=== PATIENT | female | born 1950 | race Caucasian/White ===

== ENCOUNTER → 2020-04-30 09:00 | Outpatient (BNVA) | payer MEDICARE, SELFPAY | PROVIDERS: PCP Internal Medicine; Visit Provider Surgery | DX: Z48.3 Aftercare following surgery for neoplasm (principal); C50.911 Malignant neoplasm of unspecified site of right female breast | CPT/HCPCS: 99212 ==

== ENCOUNTER 2020-05-11 10:16 | Outpatient (REF) | payer MEDICARE, SELFPAY | END 2020-05-11 10:17 | disposition home or self-care (01) | LOC: HO.LAB 10:16 | PROVIDERS: PCP Internal Medicine; Visit Provider Internal Medicine | DX: Z20.828 Contact with and (suspected) exposure to other viral communicable diseases (principal) | CPT/HCPCS: 87635 ==

== ENCOUNTER 2020-05-18 14:52 | Outpatient (REF) | payer MEDICARE, SELFPAY ==
--- NOTE | 2020-05-18 14:57 | MM_ITS ---
EXAMINATION: BONE DENSITOMETRY CLINICAL INDICATION: Osteoporosis. COMPARISON: Previous BD dated 10/19/2015 and baseline BD dated 05/16/2007. TECHNIQUE: Using a [employer] DXA System (software version: 13.1) manufactured by [employer], dual-energy x-ray absorptiometry was performed of the lumbar spine and left hip. The images are of good technical quality. Summary results are attached. FINDINGS: AP SPINE L1-L4: Current: BMD 1.068 g/cm2, Z-score 0.6, T-score -0.9, normal, 5.5% decrease from previous, 5.0% decrease from baseline (<5% change is not significant). Prior: BMD 1.130 g/cm2. Baseline: BMD 1.124 g/cm2. LEFT FEMUR, NECK: Current: BMD 0.708 g/cm2, Z-score -0.7, T-score -2.4, osteopenia. Prior: BMD 0.759 g/cm2. Baseline: BMD 0.884 g/cm2. LEFT FEMUR, TOTAL: Current: BMD 0.783 g/cm2, Z-score -0.4, T-score -1.8, osteopenia, 9.5% decrease from previous, 20.0% decrease from baseline (<5% change is not significant). Prior: BMD 0.865 g/cm2. Baseline: BMD 0.979 g/cm2. IDENTIFIED RISK FACTORS: Height loss, low calcium intake, menopause. HISTORY OF FRACTURE: None listed. MEDICATIONS: None listed. MM/XR DEXA axial skeleton IMPRESSION: 1. DIAGNOSIS: Osteopenia based on the lowest T-score value of -2.4 in the femoral neck applying World Health Organization criteria. 2. 10-YEAR FRACTURE RISK PREDICTION, FRAX: Major osteoporotic fracture (clinical spine, forearm, hip or shoulder) 14.2%. Hip fracture 3.4%. 3. Treatment Recommendations: NOF guidelines recommend consideration for treatment in postmenopausal women and men age 50 and older presenting with the following: -A hip or vertebral (clinical or morphometric) fracture. -T-score less than or equal to -2.5 at the femoral neck or spine after appropriate evaluation to exclude secondary causes. -Low bone mass at the hip or spine and a 10-year fracture probability by FRAX of greater than or equal to 3% for hip fracture or greater than or equal to 20% for major osteoporotic fracture based on the [place] adapted WHO algorithm. 4. Other Recommendations: All treatment decisions require clinical judgment and consideration of individual patient factors, including patient preferences, comorbidities, previous drug use, risk factors not captured in the FRAX model (e.g. frailty, falls, vitamin D deficiency, increased bone turnover, interval significant decline in bone density) and possible under or overestimation of fracture risk by FRAX. Additional medical evaluation for secondary cause of low bone mineral density may be appropriate. FUTURE SCAN RECOMMENDATION: People with diagnosed cases of osteoporosis or at high risk for fracture should have regular bone mineral density tests. For patients eligible for Medicare, routine testing is allowed once every 2 years. The testing frequency can be increased to one year for patients who have rapidly progressing disease, those who are receiving or discontinuing medical therapy to restore bone mass, or have additional risk factors.
== END 2020-05-18 14:53 | disposition home or self-care (01) ==
LOC: HO.MAMMO 14:52
PROVIDERS: PCP Internal Medicine; Visit Provider Internal Medicine
DX: M81.0 Age-related osteoporosis without current pathological fracture (principal)
CPT/HCPCS: 77080

== ENCOUNTER 2020-08-05 07:19 | Outpatient (REF) | payer MEDICARE, SELFPAY ==
[2020-08-05 09:06] LABS: Alanine Aminotransferase 12 U/L (0-31); Albumin Level 4.4 g/dL (3.5-5.0); Alkaline Phosphatase 59 U/L (39-117); Anion Gap 14 (12-20); Aspartate Amino Transferase 11 U/L (5-31); Bilirubin Total 0.6 mg/dL (0.0-1.0); Blood Urea Nitrogen 21 mg/dL (9-16); Calcium 9.4 mg/dL (8.4-10.2); Carbon Dioxide 29 mmol/L (22-29); Chloride 102 mmol/L (96-108); Cholesterol 227 mg/dL; Estimated Glomerular Filt Rate > 60; Glucose Random 92 mg/dL (60-115); HDL Cholesterol 69 mg/dL; LDL Cholesterol Calculated 138 mg/dl; Potassium 4.3 mmol/l (3.3-5.1); Sodium 141 mmol/L (135-145); Total Protein 7.6 g/dL (6.5-8.0); Triglycerides 103 mg/dL
== END 2020-08-05 07:20 | disposition home or self-care (01) ==
LOC: HO.LAB 07:19
PROVIDERS: Visit Provider Internal Medicine
DX: E78.2 Mixed hyperlipidemia (principal); I10 Essential (primary) hypertension; M54.5 Low back pain; N30.00 Acute cystitis without hematuria
CPT/HCPCS: 36415; 80053; 80061

== ENCOUNTER 2020-08-09 14:51 | Outpatient (REF) | payer MEDICARE, SELFPAY | END 2020-08-09 14:52 | disposition home or self-care (01) | LOC: HO.LNP 14:51 | PROVIDERS: Visit Provider Otolaryngology | DX: B37.0 Candidal stomatitis (principal) | CPT/HCPCS: 87102; 87106 ==

== ENCOUNTER → 2020-08-24 10:13 | Outpatient (BNVA) | payer MEDICARE, SELFPAY | PROVIDERS: PCP Internal Medicine; Visit Provider Surgery | DX: C50.911 Malignant neoplasm of unspecified site of right female breast (principal) | CPT/HCPCS: 99212 ==

== ENCOUNTER 2020-09-24 15:00 | Outpatient (REF) | payer MEDICARE, SELFPAY ==
--- NOTE | ~2020-09-24 | MM_ITS ---
EXAMINATION: MM DIAGNOSTIC DIGITAL BREAST TOMOSYNTHESIS, RIGHT CLINICAL INFORMATION: Status post right lumpectomy. New Baseline. COMPARISON: Mammography: 03/25/2020 and studies dating back to 08/28/2011. TECHNIQUE: Digital breast tomosynthesis is performed in both the craniocaudal and mediolateral oblique views along with computer-aided detection (CAD). Synthesized 2D images are generated from the tomosynthesis. Spot magnification views of the right breast in craniocaudal and 90 degree mediolateral views performed. FINDINGS: There are scattered areas of fibroglandular density (ACR BI-RADS breast composition Category b). Postsurgical change is seen within the upper outer quadrants deep right breast. No new abnormal dominant mass or suspicious grouping of microcalcifications identified. Six-month bilateral mammography suggested. Results are provided to the patient at time of visit by the technologist. MM/MM tomosynthesis diagnostic RT IMPRESSION: Postsurgical change of the right breast with no new specific mammographic evidence to suggest malignancy. ASSESSMENT: BI-RADS 2: Benign. RECOMMENDATION: Diagnostic mammography in 6 months. This patient's information was entered into a reminder system with a target due date for their next mammogram.
== END 2020-09-24 15:01 | disposition home or self-care (01) ==
LOC: HO.MAMMO 15:00
PROVIDERS: Visit Provider Surgery
DX: Z85.3 Personal history of malignant neoplasm of breast (principal); Z92.3 Personal history of irradiation; Z98.890 Other specified postprocedural states
CPT/HCPCS: 77061; 77065

== ENCOUNTER 2020-10-11 14:29 | Outpatient (REF) | payer MEDICARE, SELFPAY ==
[2020-10-11 16:27] LABS: Blood Urea Nitrogen 15 mg/dL (9-16); Estimated Glomerular Filt Rate > 60
== END 2020-10-11 14:30 | disposition home or self-care (01) ==
LOC: HO.LAB 14:29
PROVIDERS: PCP Internal Medicine; Visit Provider Otolaryngology
DX: J38.3 Other diseases of vocal cords (principal)
CPT/HCPCS: 36415; 82565; 84520

== ENCOUNTER 2020-10-19 13:37 | Outpatient (REF) | payer MEDICARE, SELFPAY ==
[2020-10-19 15:19] LABS: Erythrocyte Sedimentation Rate 10 MM/HR (0-20)
[2020-10-20 12:37] LABS: Lyme Abs Screen <0.90 index
[2020-10-21 11:26] LABS: IgA 251 mg/dL (70-320); IgG 1247 mg/dL (600-1540); IgM 80 mg/dL (50-300)
[2020-10-22 01:52] LABS: Copper, serum 119 mcg/dL (70-175)
[2020-10-26 14:21] LABS: Mercury, serum/plasma None Detected mcg/L
== END 2020-10-19 13:38 | disposition home or self-care (01) ==
LOC: HO.LAB 13:37
PROVIDERS: PCP Internal Medicine; Visit Provider Psychiatry & Neurology Neurology
DX: G12.20 Motor neuron disease, unspecified (principal)
CPT/HCPCS: 36415; 82525; 82550; 82784; 83825; 85652; 86334; 86617; 86618

== ENCOUNTER 2020-10-20 13:09 | Outpatient (REF) | payer MEDICARE, SELFPAY ==
--- NOTE | ~2020-10-20 | MR_ITS ---
EXAMINATION: BRAIN MRI WITHOUT CONTRAST CLINICAL INFORMATION: Weekend voice/slurring. Difficulty swallowing. History of breast carcinoma. COMPARISON: No relevant prior imaging. TECHNIQUE: Multiplanar MR imaging of the brain was performed without contrast. FINDINGS: Dedicated high-resolution imaging through the posterior fossa reveals no cerebellopontine angle cistern mass. There is no intracranial mass effect or midline shift. No abnormal extra-axial collection. Lateral and third ventricles are normal. No hydrocephalus. Midline structures including the cervicomedullary junction are normal. No acute bone marrow signal changes. There is no acute territorial infarct. No pathological magnetic susceptibility artifact. Intracranial vascular flow voids are maintained. There is no mastoid or middle ear effusion. No active paranasal sinus disease. MR/MR head/brain wo con IMPRESSION: Normal brain MRI.
== END 2020-10-20 13:10 | disposition home or self-care (01) ==
LOC: HO.MRI 13:09
PROVIDERS: Visit Provider Psychiatry & Neurology Neurology
DX: G12.20 Motor neuron disease, unspecified (principal)
CPT/HCPCS: 70551

== ENCOUNTER → 2020-11-23 09:41 | Outpatient (BNVA) | payer MEDICARE, SELFPAY | PROVIDERS: PCP Internal Medicine; Visit Provider Surgery | DX: C50.911 Malignant neoplasm of unspecified site of right female breast (principal) | CPT/HCPCS: 99212 ==

== ENCOUNTER 2020-12-06 14:40 | Outpatient (REF) | payer MEDICARE, SELFPAY ==
--- NOTE | ~2020-12-06 | FL_ITS ---
EXAMINATION: XR BARIUM SWALLOW CLINICAL INFORMATION: Mild lumbar paralysis. Dysarthria and dysphagia. COMPARISON: None TECHNIQUE: Routine modified barium swallow was performed on the lateral fluoroscopy in presence of speech therapist a different consistencies of simple liquid, semisolid and solid food.. FINDINGS: On oral administration of thin barium and nectar consistency barium patient had laryngeal penetration but no aspiration was seen. No retention seen in the valleculae or piriform sinuses. On oral administration of honey, puree, thick and cookie coated with barium there is normal oral mastication with slight premature spillage but with normal propagation bolus from the oral cavity into the esophagus without laryngeal penetration or aspiration. There was some retention of solid food food in the valleculae cleared with thin barium. On oral administration of barium tablet there is spontaneous passes through the oral cavity and pharynx into the upper esophagus. There was transitional hold up of barium in the upper thoracic esophagus. FLUOROSCOPY TIME: 3.7 minutes DOSE AREA PRODUCT: 2.935 uGy-m2 (microgray-meter squared) FL/FL barium swallow modified IMPRESSION: Laryngeal penetration with thin barium and nectar consistency barium. This was not seen with semisolid and solid food. There is mild retention of solid food in the valleculae which cleared with oral administration of thin barium. Transition holdup of barium tablet in the upper thoracic esophagus.
--- NOTE | 2020-12-08 15:40 | MHC.SL.IMP ---
Date of Plan of Treatment: 12/06/20 Onset of Symptoms/Illness: 06/08/20 Date Treatment Started: 12/06/20 Admitting Diagnosis: Primary (admitting) Diagnosis: Breast cancer Rebecca Gehrigs disease Bulbar palsy Year of Onset or Diagnosis: 2020 Comorbidities: Hypertension Past Medical History: Breast biopsy Lumpectomy right breast Laparoscopic cholecystectomy Tonsillectomy Primary Speech & Language Diagnosis: R13.12 Oropharyngeal Phase Dysphagia Secondary Speech & Language Diagnosis: R47.1 Dysarthria Reason for Today's Visit: 46522 Modified Barium Swallow Study Pre-evaluation Dietary Consistencies: Regular Pre-evaluation Liquid Consistency: Thin Pre-evaluation Medication Administration: Whole with Liquid Medical History: Comments: Modified Barium Swallow Study Fluoroscopic Evaluation of Swallowing Function CPT Code 84846 Evaluation Year: 2020 Reason for Study: Patient reports globus sensation and coughing when eating. Referring Physician: Jeovanny Carbone M.D. Evaluating Clinician: Marifer Martinez M.A. [facility] OVEN OPERATOR Study Number: 1 Patient Name: Pennie Lala Status: Outpatient Age: 70 Gender: Female MEDICAL HISTORY: Primary (admitting) Diagnosis: Breast cancer Rebecca Gehrigs disease Bulbar palsy Year of Onset or Diagnosis: 2020 Comorbidities: Hypertension Past Medical History: Breast biopsy Lumpectomy right breast Laparoscopic cholecystectomy Tonsillectomy Current (pre-evaluation) Intake/Diet: Route: PO Diet Grade: Regular Liquid Consistencies: Thin Pre-Study Functional Oral Intake Scale (FOIS): 7- Total oral intake with no restrictions Pain: None reported at time of study Oral Motor Exam Facial Symmetry: Symmetrical Mouth Occlusion: Normal Oral-Facial Teeth Characteristics: Intact/Normal Oral-Facial Teeth Miscellaneous Observation: Oral-Facial Lip Pucker Description: Weak Oral-Facial Smile (Lips) Description: Reduced ROM Oral-Facial Puff Cheeks Description: Normal Tongue Size: Normal Tongue Excursion Description: Incomplete Tongue Range of Movement Description: Reduced Tongue Speed of Movement Description: Reduced Tongue Strength of Movement (against opposing pressure): Reduced Tongue Movement Characteristics: Fasciculations Tongue Movement Miscellaneous Observation: Noted lingual fasciculations. Oral Expression Ability: Severe Impairment Is patient able to manage secretions?: Yes Is patient able to produce volitional cough?: Yes Food and Liquid Trials: Oral Impairment: Lip Closure: Did not test Oral Impairment: Tongue Control During Bolus Hold: 0=Cohesive bolus between tongue to palatal seal Oral Impairment: Bolus Preparation/Mastication: 1=Slow prolonged chewing/mashing with complete re-collection Oral Impairment: Bolus Transport/Lingual Motion: 3=Repetitive/disorganized tongue motion Oral Impairment: Oral Residue: 2=Residue collection on oral structures Oral Impairment:Initiation of Pharyngeal Swallow: 3=Bolus head in pyriforms Pharyngeal Impairment: Soft Palate Elevation: 1=Trace column of contrast or air between SP and PW Pharyngeal Impairment: Laryngeal Elevation: 1=Partial thyroid cartilage/arytenoids to epiglottic petiole movement Pharyngeal Impairment: Anterior Hyoid Excursion: 1=Partial anterior movement Pharyngeal Impairment: Epiglottic Movement: 1=Partial inversion Pharyngeal Impairment: Laryngeal Vestibular Closure:: 1=Incomplete: narrow column air/contrast in laryngeal vestibule Pharyngeal Impairment: Pharyngeal Stripping Wave: 1=Present: diminished Pharyngeal Impairment: Pharyngeal Contraction: Did not test Pharyngeal Impairment: Pharyngoesophageal Segment Openin=Partial distention/partial duration: partial obstruction of flow Pharyngeal Impairment: Tongue Base (TB) Retraction: 2=Narrow column of contrast/air between TB and posterior PW Pharyngeal Impairment: Pharyngeal Residue: 2=Collection of residue within or on pharyngeal structures Pharyngeal Impairment: Esophageal Clearance Upright Position: 1=Esophageal retention Impressions and Recommendations Clinical Observations: OBJECTIVE: Time-out: performed at 02:45 Evaluation Start: 02:30; Stop: 02:40 Patient Positioning: Seated 70-90 degrees Viewing Planes: LATERAL ONLY Contrast: MBSImP? Standardized Protocol using commercially prepared, standardized Barium viscosities, including: Varibar? THIN LIQUID (40% w/v, <15 cps) , Varibar? NECTAR (40% w/v, <150-450 cps) , Varibar? THIN HONEY (40% w/v, <800-1800 cps) , 1/2 Shortbread Cookie (1 x1 x.25 ) MBSImP ID: [id number] MBSImP Results: Lip closure for intraoral bolus containment could not be assessed due to logistical reasons not related to physiologic impairment. Tongue control during bolus hold maintained a cohesive bolus held between tongue to palate seal. Bolus preparation and mastication resulted in slow, prolonged chewing/mashing but with complete re-collection. Bolus transport/lingual motion was with repetitive/disorganized motion of the tongue. Oral residue was a collection on oral structures. Initiation of the pharyngeal swallow occurred when the bolus head was in the pyriform sinuses. Soft palate elevation allowed a trace column of contrast or air between the soft palate and the pharyngeal wall. Laryngeal elevation was decreased, with partial superior movement of the thyroid cartilage/partial approximation of the arytenoids to the epiglottic petiole. Anterior hyoid excursion demonstrated partial anterior movement. Epiglottic movement resulted in partial inversion. Laryngeal vestibular closure was incomplete, with a narrow column of air/contrast noted within the laryngeal vestibule at the height of the swallow. Pharyngeal stripping wave was present, but diminished. Pharyngeal contraction could not be determined due to logistical reasons not related to physiologic impairment. Pharyngoesophageal segment opening demonstrated partial distension/partial duration, with partial obstruction of bolus flow. Tongue base retraction allowed a narrow column of contrast or air between the retracted tongue base and the posterior pharyngeal wall. Pharyngeal residue was a collection of residue within or on pharyngeal structures. Esophageal clearance in the upright position resulted in esophageal retention. Oral Impairment Score: 9 (absence of score, component 1) Pharyngeal Impairment Score: 11 (absence of score, component 13) Esophageal Impairment Score: 1 Laryngeal Penetration and Aspiration: Penetration was observed in today's study. Thin Contrast entered the airway, remained above the vocal folds, and was ejected from the airway. Thin Contrast entered the airway, contacted the vocal folds and was not ejected from the airway. ASSESSMENT: This exam was conducted by radiologist and speech-language pathologist with patient seated at optimal 90 degree position for lateral view only. Patient was able to feed herself when handed food items. Patient trialed the following liquid and solid consistencies: -5 mL thin liquid barium -cup sip thin liquid barium -teaspoon sip honey thick liquid barium -cup sip nectar thick liquid barium -pureed solid (applesauce mixed with barium paste) -ground solid (chicken salad mixed with barium paste) -hard regular solid (Aaliyah Doone cookie coated in barium paste) -barium tablet administered with nectar thick liquid Patient presents with moderate to severe oropharyngeal dysphagia. The patient's performance in today's study indicated impairment in the following components of swallow physiology: ORAL PHASE: -prolonged mastication -repetitive and disorganized posterior lingual transport -mild oral residue -delayed pharyngeal swallow trigger PHARYNGEAL PHASE: -trace column of contrast between soft palate and pharyngeal wall -partial superior movement of thyroid cartilage with partial epiglottic inversion and partial anterior hyoid movement -incomplete laryngeal vestibular closure -diminished pharyngeal stripping wave -partial distention/ partial obstruction of flow through PES -reduced tongue base retraction -mild to moderate pharyngeal residue diffusely on tongue base, in valleculae, on posterior pharyngeal wall and in pyriforms -esophageal retention Evidence of penetration when drinking thin liquid. With smaller amounts, consistent flash penetration which subsequently ejected out of trachea. With larger amount, deep penetration into trachea, resulting in coughing and which was not ejected despite effort. Patient was instructed to clear her throat and to cough multiple times, but this was ineffective. No evidence of aspiration or penetration with thickened liquids nectar thick and honey thick. Reduced pharyngeal residue with sip of nectar thick liquid. Multiple swallow strategy was also effective in reducing residue. Patient swallowed barium pill tablet with sips of nectar thick liquid. Tablet passed through PES. Noted esophageal retention. It is important to note when drinking water after the study had been discontinued (thin liquid), patient displayed overt s/s of aspiration, as she coughed and gasped, turning red in the face. Patient stated, ?That went down the wrong pipe.? The following compensatory strategies have not been used until today's study, but when employed, improved swallowing function: [place]-thick Liquid eliminated Penetration Honey-thick Liquid eliminated Penetration Bolus Volume Change decreased Pharyngeal Residue Rate of Ingestion Change decreased Pharyngeal Residue Liquid Wash decreased Oral Residue, Pharyngeal Residue Additional Swallow(s) per Bolus decreased Oral Residue, Pharyngeal Residue Liquid Intake Recommendation: [place] Thick Liquid Intake Strategies: Small Sips No Straws Double Swallow Dietary Recommendations: Chopped/Advanced (NDD3) Medication Administration: Whole with Puree Compensatory Strategies Recommended: Sitting Upright (90 deg) Double Swallow No Straw Liquids from Cup Liquids from Spoon Small Bites and Sips Alternate Liquids/Solids Rate of Ingestion Change Avoid Specific Foods Supervision during eating and or drinking: Intermittent Supervision Recommended Treatments: Compens. Strategy Educat. Recommendation for Speech Therapy: Outpatient Speech Therapy Speech Therapy through [facility] Intake Recommendations: Route: PO Diet Grade: Chopped/ Advanced ? National Dysphagia Level 3 (NDD3) Liquid Consistencies: [place] Post-Study Functional Oral Intake Scale (FOIS): 5- Total oral intake of multiple consistencies requiring special preparation Evidence of deep penetration during exam. Patient coughed after exam when drinking water. Patient is at risk for aspiration. Recommend CHOPPED/ ADVANCED (NDD3) solids to ease mastication and reduce pharyngeal residue. Recommend food to be cut into small bite size pieces and moistened/softened with sauce/gravy. Please refer to recommendations per National Dysphagia Diet Level 3 (NDD3). Recommend avoid foods which are tough/dry and/or sticky. Recommend avoid mixed consistencies, such as cereal with milk or soups with thin broth (considered a thin liquid). If patient has difficulty swallowing pills, recommend pills whole or crushed (if cleared by MD/pharmacy) in pureed consistency (applesauce, yogurt, pudding, etc). Recommend thickened liquid, strict aspiration precautions, and close monitoring for any overt s/s of aspiration: -small bites of food, moistened with sauce/gravy -chew food well -alternate bite of food with sip of liquid -multiple swallow (swallow twice with each bite and each sip) -liquids by teaspoon or cup sip -avoid use of straws -small individual cup sip ? NO chugging or consecutive sips -upright 90 degree position during meals and for at least 30-60 minutes after meals -oral care routine at least 4 times daily Recommend 3 visits for dysphagia treatment outpatient or through [facility]. Frequency/Duration: 1x weekly x 3 weeks Date Range for Service Requested: Timeline to reassess: 3 months Home Health Rn Clinician/Clinical Fellow: No Supervisory Statement: N/A Speech Language Pathologist: Marifer Martinez M.A., CCC-ANNEALING OVEN OPERATOR
== END 2020-12-06 14:41 | disposition home or self-care (01) ==
LOC: HO.XRAY 14:40
PROVIDERS: Visit Provider Psychiatry & Neurology Neurology
DX: G35 Multiple sclerosis (principal); G51.0 Bell's palsy; R13.10 Dysphagia, unspecified; R47.1 Dysarthria and anarthria
CPT/HCPCS: 74230; 92611

== ENCOUNTER 2020-12-20 07:51 | Outpatient (REF) | payer MEDICARE, SELFPAY ==
--- NOTE | ~2020-12-20 | XR_ITS ---
EXAMINATION: KNEE X-RAY CLINICAL INFORMATION: Pain COMPARISON: Previous x-ray June 2018 TECHNIQUE: Standing AP view of both knees and lateral and sunrise view of the left kidney FINDINGS: Left knee: Bone alignment is normal. No fracture or dislocation seen. There is arthritis at the medial femoral tibial and patellofemoral joint with joint space narrowing and osteophyte formation. There is no significant joint effusion. Standing AP view of the right knee demonstrates medial femoral tibial joint space narrowing and osteophyte formation. XR/XR knee LT 3V IMPRESSION: Bilateral arthritis.
--- NOTE | ~2020-12-20 | XR_ITS ---
EXAMINATION: KNEE X-RAY CLINICAL INFORMATION: Pain COMPARISON: Previous x-ray June 2018 TECHNIQUE: Standing AP view of both knees and lateral and sunrise view of the left kidney FINDINGS: Left knee: Bone alignment is normal. No fracture or dislocation seen. There is arthritis at the medial femoral tibial and patellofemoral joint with joint space narrowing and osteophyte formation. There is no significant joint effusion. Standing AP view of the right knee demonstrates medial femoral tibial joint space narrowing and osteophyte formation. XR/XR knee standing BI IMPRESSION: Bilateral arthritis.
== END 2020-12-20 07:52 | disposition home or self-care (01) ==
LOC: HO.HOSX 07:51
PROVIDERS: Visit Provider Physician Assistant
DX: M17.12 Unilateral primary osteoarthritis, left knee (principal)
CPT/HCPCS: 20610; 73562; 73564; 73565; 99202; J1100

== ENCOUNTER 2020-12-23 14:23 | Outpatient (RCR) | payer MEDICARE, SELFPAY ==
--- NOTE | 2020-12-06 16:49 | MHC.SLORD ---
Speech Language Pathology Order Status: MBSS completed. Evidence of deep penetration trace amount when drinking thin liquid. Patient did not clear from airway with volitional cough. No aspiration or penetration with nectar thick and honey thick liquids. No aspiration or penetration with solids. Pharyngeal retention on tongue base, pharyngeal wall, vallecular space, and pyriforms. ? of aspiration event when patient was drinking (thin) water after exam. Patient took small sip and began coughing, turning red in the face, and stating It went down the wrong pipe. Recommend CHOPPED/ADVANCED solids (NDD3) and NECTAR THICK liquid. Recommend 1-2 follow up visits with [employer] for dysphagia.
--- NOTE | 2020-12-06 16:57 | MHC.SLORD ---
Speech Language Pathology Order Status: [employer] called and spoke with patient. Discussed MBSS results and recommendations/instructions for thickener.
--- NOTE | 2020-12-28 15:10 | MHC.SP.ADU ---
Referring provider: Dr. Carbone Reason for Referral: Assess speech and swallow functions as Pennie was recently diagnosed with ALS Type of Treatment: 59075 Evaluation of Speech Sound Production Date of Plan of Treatment: 12/23/20 Onset of Symptoms/Illness: 05/16/20 Date Treatment Started: 12/06/20 Medical Diagnosis: Hypertension, osteoarthritis left knee, breast cancer diagnosed February 2020 s/p lumpectomy and radiation. 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 Jeovanny Carbone. Per Dr. Carbone?s provided notes from her office visit on 11/29/20, Pennie initially noted changes with her speech and vocal quality in May 2020. Pennie reported that in May, her voice was just hoarse. Around the same time, she also developed difficulty with swallowing pills. Her PCP, Dr. Short, referred her to an ENT, at which time she was diagnosed with thrush. Pennie was treated for thrush, though her vocal quality did not improve. She was then referred to a neurologist. She had an EMG/NCV on 11/03/20 which revealed normal motor and sensory nerve conduction in upper and lower extremities. 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 Dr. Carbone recommended a second opinion; Pennie has an appointment with Dr. Waldrop on January 11, 2021. Per Dr. Carbone's provided notes from Pennie's recent office visit on 11/29/20 reported that atrophy and fasiculations were noted on Pennie?s tongue, along with spasticity. Significant dysarthria was also noted. Pennie participated in a Modified Barium Swallow Study (MBSS) that was performed at [facility] on 12/06/20 at which time an NDD3 (chopped) diet with nectar thick liquids was recommended. Medical History: Cancer: other High Blood Pressure Neurological Conditions e.g.: Diana's, Parkinson's Voice Changes Medication List: Amlodipine, Olmesartan, Fluconazole, Riluzole Recent Hospitalizations: No Respiratory Needs: Room Air Patient Orientation: Alert & Oriented x 4 Social History: Employment Status: Retired Highest level of education obtained: Completed Bachelor's Current Living Situation: Pennie resides alone in a home in [place], [place]. She is currently retired and previously worked as a computer engineering technologist. Assistive Devices in use: Comment: Pennie wears glasses when reading. She ambulated without any assistive devices. Past Speech Language Therapy: None Other Therapies Seen in Current Calendar Year: None Swallowing History: Dysphagia Specific: Risk of Aspiration Oral Phase Dysphagia Pharyngeal Dysphagia Comments: Pennie participated in a Modified Barium Swallow Study (MBSS) that was performed at [facility] on 12/06/20. Findings revealed the following: slow, prolonged mastication with solids, repetitive/disorganized lingual movements during bolus transport, oral residuals, decreased laryngeal elevation, partial epiglottic inversion, flash penetration with small quantities of thin liquids and deep laryngeal penetration with larger quantities of thin liquids. Pennie was not successful in ejecting the penetrated liquid with the use of a cough or throat clear. No tracheal aspiration or laryngeal penetration was visualized with thickened liquids. An NDD3 (National Dysphagia Diet level 3) diet (chopped/advanced solids), nectar thick liquids, and medications crushed in puree were recommended. Pennie reported no further overt signs or symptoms of aspiration since she began the implementation of these recommendations at home. Pre-eval Risk for Aspiration: Neurological Condition Weak Cough Weak Voice Pre-evaluation Dietary Consistencies: Chopped/Advanced (NDD3) Pre-eval Liquid Intake: [place] Thick Pre-eval Medication Intake: Crushed with Puree Reported Speech, Language, Cognition difficulties: Speaking Voice Swallowing Comments: Pennie reported that an VOCATIONAL AIDE, Shazia Thomas M.S. [facility]-VOCATIONAL AIDE, from the [place] chapter of the ALS association visited her home on 12/22/20. Pennie provided this clinician with Shazia's contact information in order to collaborate in Pennie's care. Quality of Life: Pennie reported that she frequently has difficulty being understood by others. She now requires other people to make phone calls for her, as individuals on the telephone are unable to understand Pennie. She also reported that she participates in Zoom calls with her friends in the evening, though is unable to speak as they are unable to understand her. She instead types in order to communicate with them. Patient Stated Goal of Speech-Language Therapy: To be able to be understood by others, especially when making phone calls and ordering at the [facility]. Assessment Speech Production: Dysarthric Clinical Impression: Impaired Observations: Satinder's 50-word Intelligibility Test was administered. The purpose of this test is to classify the degree of dysarthria based on intelligibility (how well Damons speech can be understood by others). Pennie was provided with 50 index cards that each contained a single printed word. These cards were presented in random order. Pennie then read each word aloud and this clinician wrote down her responses. Based on this assessment, Pennie's speech intelligibility for single words was 62%; 31 out of the 50 words produced by Pennie were understood by this clinician. Pennie often produced the correct initial sounds of words, but substituted or omitted the final sounds of words. This pattern is suspected to be related to fatigue. Pennie expressed that she felt fatigued following the evaluation tasks. For instance, this clinician heard the word sleeves for sleeps , shove for shrug , and swep for swept . When provided with a short reading passage unfamiliar to this clinician, Pennie's speech was less than 10% intelligible. Informal Voice Assessment: Voice Loudness: Moderately Soft/Quiet Monoloudness Limited Variation Voice Nasal Resonance: Hypernasal Voice Oral Resonance: Chesty Voice Phonatory-based Quality: Breathy Hoarse Tremor Loss of Voice Voice Pitch: Limited Variation Pitch Breaks Voice Other Observations: Progressively Weak Voice Inadequate Breath Support Clinical Impression: Impaired Clinicial Observations: Pennie demonstrated monopitch and monoloudness during structured evaluation tasks as well as spontaneous connected speech. Her vocal quality was deemed by this grinder chipper to be very hoarse. Pennie demonstrated decreased breath support for speech, evidence by aphonia at times (loss of voice) as well as pitch breaks. Tests of Speech & Lang Adults: Clinical Impression: Did Not Test Observations: There was no indication for expressive/receptive language testing at the time of the evaluation. Pennie did not demonstrate any instances of word retrieval difficulty nor difficulties with comprehension throughout the assessment. Tests of Cognition: Clinical Impression: Did Not Test Observations: There was no indication for a cognitive assessment at the time of Pennie's evaluation. Augmentative and Alternative Communication: Observations: Discussed the recommendation for an AAC evaluation. Impressions and Recommendations Summary: Impact on Daily Function/Activity Limitations- Daily Activities: Severe Interpersonal Interactions: Severe Education: None Employment: None Community: Severe Prognosis for Improvement: Fair Comment: Pennie is highly motivated to improve her swallow and speech/voice functions, however, due to the progressive nature of ALS, her overall prognosis in the areas of speech, voice, and swallow function is fair-guarded. Recommendation for Speech Therapy: Further Testing Needed Outpatient Speech Therapy Frequency/Duration: 1x/week x 12weeks Time to Reassess: 3 months Asian Studies Professor Goals: Pennie was notified that the [facility] currently has a waitlist. However, this clinician will contact the VOCATIONAL AIDE from the [place] chapter of the ALS association in order to begin coordination of care/obtaining an AAC device. In the meantime, Pennie was provided with written material regarding ALS and AAC devices as well as the names of several text to speech apps that she may find useful when needing to communicate to others. Short Term Goals: Goal # : ? Diet - The patient will tolerate a CHOPPED/ADVANCED (NDD3) diet with nectar thick liquids without signs or symptoms of penetration/aspiration 100% of the time. - The patient will participate in therapeutic PO trials with the VOCATIONAL AIDE. Goal Status: Goal# 1 - Pennie will participate in an AAC evaluation at a comprehensive multidisciplinary ALS clinic as referred by the [place] chapter of the [employer]. Goal #2 - The patient will verbalize/demonstrate understanding of the results of this evaluation and this clinician's recommendations. Recommended Referrals to be Discussed with Primary Care Provider: Alternate Feeding Method Dietary Consult Other: See Comment An AAC evaluation performed by a multidisciplinary ALS team. Анна López, a hospice care consultant from the [place] chapter of the ALS association, is initiating a referral to the [facility] in [place], [place]. It was a pleasure meeting and working with Pennie. Please do not hesitate to contact me at [email or web address] with any questions or concerns. Patient Education Completed: Yes Patient/Caregiver Education: Described Results of Evaluation Patient expressed understanding of evaluation Patient agrees with goals and treatment plan Comments/Barriers to Learning: Nurses Director Clinican/Clinical Fellow: No Supervisory Statement: N/A Speech Language Pathologist: Kiki Pinto M.A., [facility]-VOCATIONAL AIDE
== END 2021-11-14 16:11 | disposition home or self-care (01) ==
LOC: HO.SH 14:23
PROVIDERS: Visit Provider Psychiatry & Neurology Neurology
DX: G12.22 Progressive bulbar palsy (principal)
CPT/HCPCS: 92522

== ENCOUNTER 2021-02-10 12:43 | Outpatient (RCR) | payer MEDICARE, SELFPAY ==
--- NOTE | 2021-02-10 14:29 | MHC.PT.EP ---
[facility] [place] [facility] [place] [facility] [place] Office [address] [phone] F: [phone] F: [phone] F: [phone] F: [phone] Physical Therapy Plan of Care Date of Evaluation: Date of Surgery: n/a. 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 She has ALS which has caused her to lose her voice and have some new breathing difficulty. She has had breast cancer as well with lumpectomy 1 year ago. She is not working at this time. She goals is to establish ideal HEP for knee management. Current impairments include pain, ROM, strength, safety, independence, activity tolerance and functional mobility. Functional limitations include decreased ability to walk, stand, transfer, negotiate stairs, and perform weight bearing activities.. Patient is motivated with good rehab potential. Skilled PT will address impairments and functional limitations in order to achieve goals. Frequency and Duration: The patient will be seen 1x/week for 4 weeks Short Term Goals: I with HEP X Ray Control Equipment Repairer Goals: Reduced pain with walking greater than 15 minutes - 4 weeks Treatment Plan: Modalities to reduce pain, spasms and effusion. Manual therapy to restore motion and function. Therapeutic exercise to improve strength and flexibility. Neuromuscular re-education for posture and balance. Therapeutic activities to return to functional activities of daily living. Electronically signed by: Benitez Herrera, PT Please sign and return to therapist. Thank you for your referral.
--- NOTE | 2021-06-21 13:50 | MHC.PT.DC ---
[facility] [place] Office [place] Office [place] Office [address] Bae[address] [phone] F: [phone] F: [phone] F: [phone] F: [phone] Physical Therapy Discharge Report Diagnosis: Primary OA of b/l knees, L > R Date of Surgery: n/a. Date of Evaluation: 02/10/21 Date of Discharge: 03/23/21 Treatments to Date: 1 Cancellations to Date: 0 No Shows to Date: 0 Discharge Status: Patient Elected to Stop Discharge Summary: After several discussions with pt and compliance with HEP established on IE, we mutually agreed to hold on further PT at this time due to lack of progress. Patient is a 70 year old R handed female who presents with s/s consistent with b/l knee OA. She has ALS which has caused her to lose her voice and have some new breathing difficulty. She has had breast cancer as well with lumpectomy 1 year ago. She is not working at this time. Her goal is to establish ideal HEP for knee management. Current impairments include pain, ROM, strength, safety, independence, activity tolerance and functional mobility. Functional limitations include decreased ability to walk, stand, transfer, negotiate stairs, and perform weight bearing activities.. Patient is motivated with good rehab potential. Skilled PT will address impairments and functional limitations in order to achieve goals. Electronically signed by: Benitez Herrera, PT Please sign and return to therapist. Thank you for your referral.
== END 2021-06-21 13:50 | disposition home or self-care (01) ==
LOC: HO.PTCHIC 12:43
PROVIDERS: PCP Internal Medicine; Visit Provider Physician Assistant
DX: M17.0 Bilateral primary osteoarthritis of knee (principal)
CPT/HCPCS: 97110; 97162

== ENCOUNTER 2021-03-09 08:54 | Outpatient (REF) | payer MEDICARE, SELFPAY ==
--- NOTE | ~2021-03-09 | MM_ITS ---
EXAMINATION: MM DIAGNOSTIC DIGITAL BREAST TOMOSYNTHESIS, BILATERAL CLINICAL INFORMATION: Due for yearly. Status post right lumpectomy for invasive ductal cancer, 04/04/2020 COMPARISON: Mammography: 09/24/2020, 04/04/2020, 03/10/2020, 03/04/2020, 02/25/2020, 11/22/2018, 11/20/2017 TECHNIQUE: Digital breast tomosynthesis is performed in both the craniocaudal and mediolateral oblique views along with computer-aided detection (CAD). Synthesized 2D images are generated from the tomosynthesis. Additional views are provided: Exaggerated right CC, magnification right ML, magnification exaggerated right CC view. FINDINGS: There are scattered areas of fibroglandular density (ACR BI-RADS breast composition Category b). There are post therapy changes again noted on the right with reduced breast size and stable scarring posterior upper breast. There is no interval significant mass or architectural abnormality or abnormal calcifications in either breast. No significant changes. Results are provided to the patient at time of visit by the technologist. MM/MM tomosynthesis diagnostic BI IMPRESSION: No mammographic evidence of malignancy. Post therapy changes right breast. ASSESSMENT: BI-RADS 2: Benign RECOMMENDATION: Annual bilateral mammography. This patient's information was entered into a reminder system with a target due date for their next mammogram.
== END 2021-03-09 08:55 | disposition home or self-care (01) ==
LOC: HO.MAMMO 08:54
PROVIDERS: Visit Provider Surgery
DX: Z85.3 Personal history of malignant neoplasm of breast (principal)
CPT/HCPCS: 77062; 77066

== ENCOUNTER → 2021-04-20 15:22 | Outpatient (BNVA) | payer MEDICARE, SELFPAY | PROVIDERS: PCP Internal Medicine; Visit Provider Surgery | DX: G12.21 Amyotrophic lateral sclerosis (principal) | CPT/HCPCS: 99212 ==

== ENCOUNTER → 2021-04-21 11:12 | Outpatient (BNVA) | payer MEDICARE, SELFPAY | PROVIDERS: Visit Provider Physician Assistant | DX: M17.12 Unilateral primary osteoarthritis, left knee (principal) | CPT/HCPCS: 20610; 99212; J7318 ==

== ENCOUNTER 2021-05-17 08:26 | Day surgery (SDC) | payer MEDICARE, SELFPAY ==
[2021-05-10 15:25] VITALS: BMI 21.4
--- NOTE | 2021-05-16 09:56 | HO.ANESPROP2 ---
Documented by User: Mile Dorman NP 05/16/21 09:58 HPI - Anesthesia Eval Consult details Narrative: 71yo F for PEG Tube Placement PMFSH Active Problems Active Problems: All Active Problems (Updated 05/10/21 @ 15:14 by Aicha Brennan RN) Infiltrating ductal carcinoma of right breast (Chronic) Knee pain (Acute) Osteoarthritis of knees, bilateral (Acute) Osteoarthritis of left knee (Acute) Rebecca Gehrigs disease (Acute) Past Medical History Medical History (Updated 05/10/21 @ 15:14 by Aicha Brennan RN) Breast cancer Hypertension Rebecca Gehrigs disease Family History Family History Father Prostate cancer Mother Cervical ca Breast CA Maternal Aunt Breast CA Other HTN (hypertension) Surgical History Surgical History (Updated 05/10/21 @ 15:14 by Aicha Brennan RN) H/O breast biopsy (03/03/20) H/O colonoscopy History of lumpectomy of right breast (03/25/20) Hx laparoscopic cholecystectomy Hx of tonsillectomy Social History Social History Alcohol intake: never Patient Tobacco Use Status: Never used Tobacco Use of substances other than those prescribed or required for medical reasons: No Advance Directives Information Provided: Yes (informational brochure mailed) Advance Directives on File: No Current occupational status: retired Current occupation: Right handed. Meds Allergies Allergy/AdvReac Type Severity Reaction Status Date / Time Sulfa (Sulfonamide Allergy Mild FEVER/RASH Verified 05/17/21 09:12 Antibiotics) [SULFA (SULFONAMIDE ANTIBIOTICS)] lisinopril AdvReac Intermediate Cough Verified 05/17/21 09:12 Home Medications Medication Instructions Recorded Confirmed Last Taken Type riluzole 50 mg tablet 50 mg PO Q12H 11/23/20 05/10/21 05/17/21 05:00 History amlodipine 5 mg tablet 5 mg PO DAILY 04/20/21 05/10/21 Unknown History olmesartan 20 mg tablet 20 mg PO DAILY 04/20/21 05/10/21 Unknown History Exam Exam Date and Time: May 16, 2021 0956 Height,Weight and Vital Signs: Height 5 ft 5 in Weight 58.513 kg Narrative Narrative: Laboratory Tests 02/28/21 02/28/21 15:35 15:35 WBC 7.2 Hgb 13.8 Hct 42.1 Plt Count 234 Sodium 143 Potassium 4.4 Chloride 105 Carbon Dioxide 26 BUN 19 H Creatinine 0.62 Assessment and Plan Assessment Anesthesia Assessment: Chart Reviewed Documented by User: Joelle Hurtado MD 05/17/21 09:33 PMFSH Past Medical History Medical History (Updated 05/10/21 @ 15:14 by Aicha Brennan RN) Breast cancer Hypertension Rebecca Gehrigs disease Family History Family History Father Prostate cancer Mother Cervical ca Breast CA Maternal Aunt Breast CA Other HTN (hypertension) Surgical History Surgical History (Updated 05/10/21 @ 15:14 by Aicha Brennan RN) H/O breast biopsy (03/03/20) H/O colonoscopy History of lumpectomy of right breast (03/25/20) Hx laparoscopic cholecystectomy Hx of tonsillectomy Social History Social History Alcohol intake: never Patient Tobacco Use Status: Never used Tobacco Use of substances other than those prescribed or required for medical reasons: No Advance Directives Information Provided: Yes (informational brochure mailed) Advance Directives on File: No Current occupational status: retired Current occupation: Right handed. Meds Allergies Allergy/AdvReac Type Severity Reaction Status Date / Time Sulfa (Sulfonamide Allergy Mild FEVER/RASH Verified 05/17/21 09:12 Antibiotics) [SULFA (SULFONAMIDE ANTIBIOTICS)] lisinopril AdvReac Intermediate Cough Verified 05/17/21 09:12 Home Medications Medication Instructions Recorded Confirmed Last Taken Type riluzole 50 mg tablet 50 mg PO Q12H 11/23/20 05/10/21 05/17/21 05:00 History amlodipine 5 mg tablet 5 mg PO DAILY 04/20/21 05/10/21 Unknown History olmesartan 20 mg tablet 20 mg PO DAILY 04/20/21 05/10/21 Unknown History Exam Airway Mallampati Class: II TM Dist: >3cm Neck ROM: Full
[2021-05-17] VITALS (7 sets, daily range): BP systolic 120–142; BP diastolic 49–64; PULSE 71–88; RESP 16–20; TEMP 36.4–36.8; O2SAT 94–98
--- NOTE | 2021-05-17 09:24 | MHC.SHP ---
Pre-Procedural Eval Section A Date of Service: 05/17/21 Section B Chief Complaint: Rebecca Gehrigs disease Allergies: Allergies Allergy/AdvReac Type Severity Reaction Status Date / Time Sulfa (Sulfonamide Allergy Mild FEVER/RASH Verified 05/17/21 09:12 Antibiotics) [SULFA (SULFONAMIDE ANTIBIOTICS)] lisinopril AdvReac Intermediate Cough Verified 05/17/21 09:12 Plan I have reviewed the history and physical and performed a pertinent physical examination on my patient. No changes have occurred unless specified.
[2021-05-17] MEDS: Lactated Ringers 1,000 ML 100 ML IVCONT (09:44)
--- NOTE | 2021-05-17 10:15 | P.OP_ITS ---
Operative Note Operative Note Date of Service: 05/17/21 Narrative: Preop diagnosis: Amyotrophic lateral sclerosis with dysphagia Postop diagnosis: The same Procedure: PEG tube placement Surgeon: Nawaf Roman MD metal forger's assistant: MAXIM Brown The patient is a 71 year female with ALS, referred to me for PEG tube placement in view of dysphagia. She understood the technique of the procedure. She was aware of the risks, benefits, and alternatives She was brought to the operating room and placed supine on table under general seizure via endotracheal tube. A surgical time-out was done. A bite block was in position. I then proceeded to insert the endoscope through the bite block into the oropharynx. The vocal cords were visualized. The esophageal slit was seen posterior to this. The is difficult cyst was intubated. The scope was then gently advanced through the esophageal slit, all the way through the entire length of esophagus and into the stomach. The stomach was distended with insufflation. We were able to easily see transillumination just below the left subcostal margin. I was also able to clearly see the inpatient on the anterior stomach wall by pressing on the same area with the finger on the abdominal wall. This area was therefore prep. This was infiltrated lidocaine 1%. A small stab incision was made in the skin. A small needle was initially used to confirm location. This small needle was seen endoscopically. A large needle with a cannula was then inserted without difficulty. This was clearly and easily seen endoscopically within the lumen. The needle was removed and the cannula was left in place. We advanced a guidewire through the cannula and this was grasped with a snare from the endoscope. The wire was then pulled out along with the scope all the way out through the oral orifice. The other end of the PEG tube was looped around this wire. The wire was then pulled out through the abdominal wall until we felt the inner bolster snug within the anterior wall of the stomach. I reinserted the scope all the way to the stomach and examined the inner bolster and this appeared to be in good position. There was note of good hemostasis. There were no lesions seen on the stomach mucosa I then pulled the scope out completely. The external bolster was placed on the abdominal wall to keep this snug. The procedure was then completed The patient tolerated procedure well. There were no complication noted. The patient is extubated without difficulty and transferred to recovery room with stable vital signs. Estimated blood loss was about 5 cc.
== END 2021-05-17 12:29 | disposition home or self-care (01) ==
PROVIDERS: PCP Internal Medicine; Visit Provider Surgery
PROC: 0DH63UZ Insertion of Feeding Device into Stomach, Percutaneous Approach (ICD-10-PCS; CPT 43246; principal; 2021-05-17 10:20)
DX: G12.21 Amyotrophic lateral sclerosis (principal); R13.10 Dysphagia, unspecified; I10 Essential (primary) hypertension; C50.911 Malignant neoplasm of unspecified site of right female breast; Z79.811 Long term (current) use of aromatase inhibitors; Z79.899 Other long term (current) drug therapy; Z88.2 Allergy status to sulfonamides; Z90.49 Acquired absence of other specified parts of digestive tract
CPT/HCPCS: 43246; J0690; J1100; J2405; J3010

== ENCOUNTER → 2021-05-26 09:40 | Outpatient (BNVA) | payer MEDICARE, SELFPAY | PROVIDERS: PCP Internal Medicine; Visit Provider Surgery | DX: G12.21 Amyotrophic lateral sclerosis (principal); Z93.1 Gastrostomy status; C50.911 Malignant neoplasm of unspecified site of right female breast; Z79.811 Long term (current) use of aromatase inhibitors | CPT/HCPCS: 99212 ==

== ENCOUNTER 2021-06-06 15:15 | Outpatient (RCR) | payer MEDICARE, SELFPAY ==
--- NOTE | 2021-07-05 16:07 | MHC.SL.POC ---
TUBING DRIER returned phone call to patient's new A TUBING DRIER, Ursula, after receiving a voicemail about Pennie hoping to schedule an appointment in July. It is unclear whether she would like an appointment for an evaluation or to return to outpatient treatment. Message left for Ursula this date at 3:45 pm. Chucking And Sawing Machine Operator Clinican/Clinical Fellow: No Supervisory Statement: I have reviewed and agree with the documentation written by the student/clinical fellow: N/A Speech Language Pathologist: Ting Becerra M.A., CCC-TUBING DRIER
== END 2021-06-08 11:48 | disposition home or self-care (01) ==
LOC: HO.SH 15:15
PROVIDERS: Visit Provider Psychiatry & Neurology Neurology
DX: G12.21 Amyotrophic lateral sclerosis (principal)
CPT/HCPCS: 92507

== ENCOUNTER → 2024-03-25 10:13 | Outpatient (RCR) | payer MEDICARE, SELFPAY ==
[2020-04-15 10:13] VITALS: BP 140/62; PULSE 84; RESP 18; TEMP 36.9; O2SAT 96
--- NOTE | 2020-04-15 10:14 | PM.HEMONCCN ---
Subjective - Subjective Chief complaint: right breast cancer Consult date: 04/15/20 Requesting Physician: Dr. Perez Primary Care Provider: Oksana Short MD Medical Summary: Diagnosis: Right breast invasive ductal carcinoma March 2020 routine screening mammography in February 2020 revealed right breast density, targeted ultrasound and mammography revealed 5 mm hypoechoic nodule 11 o'clock position, 9 cm from nipple. Margins ill-defined. This was read as suspicious, biopsy was recommended. On 03/10/2020 right breast core biopsy of 11:00 o'clock nodule revealed invasive ductal carcinoma, MS BR grade 2, DCIS, nuclear grade 2. estrogen receptor positive 80%, progesterone receptor negative, HER2 Diana negative. On 03/25/2020 underwent right breast lumpectomy with sentinel node biopsy. Pathology -invasive ductal carcinoma, grade 2, DCIS intermediate nuclear grade, solid type. No LVI, margins negative. Four sentinel lymph nodes negative for tumor. Tumor size 0.6 x 0.5 cm. TNM stage pT1b N0 (sn ) (-i) HPI - Consult Narrative Reason for consult: right breast cancer Narrative: Pennie Lala is a 69 year old female referred for consultation with recent diagnosis of right breast cancer. She underwent routine mammogram in February 2020 which demonstrated a suspicious nodule in the right breast, upper outer quadrant. She did not feel any palpable nodules and did not have any symptoms such as nipple discharge or skin thickening. She has not had any prior breast biopsies or abnormal mammograms. She is postmenopausal but did not receive any hormone replacement therapy. She was on control pills for about 15 years. She has had no pregnancies. Her family history significant for mother having been treated for breast cancer, she in her 90s of unrelated causes. A maternal aunt had breast cancer as well. She is aware of further treatment such as radiation therapy and hormonal therapy. She does not want to receive chemotherapy but is interested in knowing more about her risk of breast cancer recurrence. She is up-to-date on colonoscopies. She is healing well from her surgery and denies any breast pain. She has no other complaints today. Review of Systems - Constitutional Reports no additional constitutional complaints, Denies anorexia, Denies chills, Denies fatigue - ENT Reports sinus pressure - Cardiovascular Denies chest pain, Denies lightheadedness, Denies shortness of breath with activity - Respiratory Denies cough, Denies pain with cough - Musculoskeletal Denies back pain, Denies body aches - Integumentary/Breasts Skin/Breast: Denies breast swelling, Denies breast pain, Denies change in skin color Oncology Screenings - ECOG Performance Status ECOG Performance Status: 0 PMFSH Medical History: Medical History (Last Updated 04/15/20 @ 10:08 by Suzanne Clayton, RN) Breast cancer Hypertension Family History: Family History (Last Updated 04/15/20 @ 10:30 by Suzanne Clayton, RN) Father Prostate cancer Mother Cervical ca Breast CA Maternal Aunt Breast CA Other HTN (hypertension) Surgical History: Surgical History (Last Updated 04/15/20 @ 10:08 by Suzanne Clayton, JOHNNA) H/O breast biopsy Hx laparoscopic cholecystectomy Hx of tonsillectomy Home Medications and Allergies Home Medications Medication Instructions Recorded Confirmed Type amlodipine 5 mg PO DAILY 04/15/20 04/15/20 History olmesartan 40 mg PO DAILY 04/15/20 04/15/20 History Allergies Allergy/AdvReac Type Severity Reaction Status Date / Time Sulfa (Sulfonamide Allergy Unknown FEVER/RASH Unverified 04/01/20 15:16 Antibiotics) [SULFA (SULFONAMIDE ANTIBIOTICS)] lisinopril AdvReac Cough Verified 04/15/20 10:31 Sulfacet-R Allergy Unknown Cough Uncoded 04/15/20 10:31 Physical Exam Narrative: Middle-aged woman, appears well built and well nourished. - Constitutional Present: no acute distress - Routine HEENT Exam Head: Present: atraumatic, normal inspection Eye: Present: conjunctival injection, EOMI ENT: Present: normal oropharynx - Routine Neck Exam Present: supple. Absent: lymphadenopathy - Routine Chest/Breast/Axilla Exam Chest wall: Absent: tenderness, mass Breast: Absent: swelling, erythema Axillae: Absent: lymphadenopathy - Routine Respiratory Exam Present: CTAB - Routine Cardiovascular Exam Cardiovascular: Present: RRR, S1, S2 - Routine Abdominal Exam Present: normal bowel sounds, nontender - Routine Extremities Exam Absent: joint swelling, pedal edema - Routine Skin Exam Present: intact, warm - Routine Neurological Exam Present: alert, oriented X3 Assessment and Plan (1) Infiltrating ductal carcinoma of right breast Status: Acute 1. This is a 69-year-old postmenopausal woman with right breast invasive ductal carcinoma diagnosed in February 2020. She underwent right breast lumpectomy with sentinel node biopsy on 03/25/2020. Pathology -invasive ductal carcinoma, grade 2, DCIS intermediate nuclear grade, solid type. No LVI, margins negative. Four sentinel lymph nodes negative for tumor. Tumor size 0.6 x 0.5 cm. TNM stage pT1b N0 (sn ) (-i). ER positive, CA and HER2 Diana negative. She has early stage breast cancer with no high-risk features. She is being referred for adjuvant radiation therapy, she is a candidate for adjuvant hormonal therapy with aromatase inhibitors for 5 years. We also discussed role of adjuvant chemotherapy, she is interested in knowing her risk of recurrence with Oncotype DX recurrence score assay. This will be ordered. Bone density test will be ordered. She does not need staging workup. Her blood work was normal in December of this year. This will be repeated on the next visit. 2. Family history of breast cancer in her mother and maternal aunt. She has no siblings or children. She was not interested in genetic counseling for inherited cancer syndromes, this will be discussed again at a future date. She will be called with results of Oncotype DX assay. Follow-up in 2 months. Referral to Radiation Oncology at [facility] has been made. I thank you very much for this consultation.
[2020-04-15 10:20] VITALS: BMI 25.7
--- NOTE | 2020-04-15 13:31 | MHC.HEMONC ---
mitzi aware referral to [facility] and bone scan pt aware of both and awaiting call at home with date and time
--- NOTE | 2020-04-23 10:34 | MHC.HEMONC ---
PT APPT to [facility]- Radiation Oncology scheduled for 05/05/2020 at 11am. Pt was notified of the appt. Documents, & reports faxed to
--- NOTE | 2020-06-23 15:36 | PM.HEMONCPN ---
Medical Summary - Medical Summary Date of Service: 06/23/20 Chief complaint: Follow-up Medical Summary: Diagnosis: Right breast invasive ductal carcinoma March 2020 routine screening mammography in February 2020 revealed right breast density, targeted ultrasound and mammography revealed 5 mm hypoechoic nodule 11 o'clock position, 9 cm from nipple. Margins ill-defined. This was read as suspicious, biopsy was recommended. On 03/10/2020 right breast core biopsy of 11:00 o'clock nodule revealed invasive ductal carcinoma, MS BR grade 2, DCIS, nuclear grade 2. estrogen receptor positive 80%, progesterone receptor negative, HER2 Diana negative. On 03/25/2020 underwent right breast lumpectomy with sentinel node biopsy. Pathology -invasive ductal carcinoma, grade 2, DCIS intermediate nuclear grade, solid type. No LVI, margins negative. Four sentinel lymph nodes negative for tumor. Tumor size 0.6 x 0.5 cm. TNM stage pT1b N0 (sn ) (-i) Oncotype recurrence score high at 29. Patient declined adjuvant chemotherapy. She completed adjuvant radiation therapy. Interval History Interval history: Patient is here in follow-up. She is doing okay, her last day of radiation therapy is next Sunday. She reports some redness of her right breast but no significant swelling, pain or open areas. She is trying to moisturize as much as possible. She has now recovered completely from cough and shortness of breath but she has some sinus congestion. Her nausea has resolved. Her COVID test was negative. Sometimes she experiences some anxiety about not receiving chemotherapy. She is now willing to start adjuvant hormonal therapy. Review of Systems - Constitutional Reports no additional constitutional complaints - Cardiovascular Reports no additional cardiovascular complaints - Respiratory Reports as per HPI - Gastrointestinal Reports no additional gastrointestinal complaints [facility] Medical History: Medical History (Last Reviewed 04/30/20 @ 09:36 by Oleg Perez MD) Breast cancer Hypertension Family History: Family History (Last Reviewed 04/30/20 @ 09:36 by Oleg Perez MD) Father Prostate cancer Mother Cervical ca Breast CA Maternal Aunt Breast CA Other HTN (hypertension) Surgical History: Surgical History (Last Reviewed 04/30/20 @ 09:36 by Oleg Perez MD) H/O breast biopsy Hx laparoscopic cholecystectomy Hx of tonsillectomy Home Medications and Allergies Home Medications Medication Instructions Recorded Confirmed Type amlodipine 5 mg PO DAILY 04/15/20 04/30/20 History olmesartan 40 mg PO DAILY 04/15/20 04/30/20 History Allergies Allergy/AdvReac Type Severity Reaction Status Date / Time Sulfa (Sulfonamide Allergy Unknown FEVER/RASH Unverified 04/01/20 15:16 Antibiotics) [SULFA (SULFONAMIDE ANTIBIOTICS)] lisinopril AdvReac Cough Verified 04/15/20 10:31 Sulfacet-R Allergy Unknown Cough Uncoded 04/15/20 10:31 Exam Vital signs: Vital Signs Temp 98.4 F 04/15/20 10:13 Pulse 84 04/15/20 10:13 Resp 18 04/15/20 10:13 BP 140/62 H 04/15/20 10:13 Pulse Ox 96 04/15/20 10:13 Weight 69.967 kg Body Mass Index 25.7 - Constitutional Present: no acute distress - Routine HEENT Exam Head: Present: atraumatic, normal inspection - Routine Chest/Breast/Axilla Exam Chest wall: Absent: tenderness, mass - Routine Respiratory Exam Present: CTAB - Routine Cardiovascular Exam Cardiovascular: Present: RRR, S1, S2 - Routine Abdominal Exam Present: normal bowel sounds, nontender - Routine Extremities Exam Absent: joint swelling, pedal edema - Routine Skin Exam Present: intact, warm - Routine Neurological Exam Present: alert, oriented X3 Data - Labs CBC & Chem 7: 06/23/20 15:43 06/23/20 15:43 Progress Note: A/P (1) Infiltrating ductal carcinoma of right breast Status: Acute Assessment and plan: 1. This is a 69-year-old postmenopausal woman with right breast invasive ductal carcinoma diagnosed in February 2020. She underwent right breast lumpectomy with sentinel node biopsy on 03/25/2020. Pathology -invasive ductal carcinoma, grade 2, DCIS intermediate nuclear grade, solid type. No LVI, margins negative. Four sentinel lymph nodes negative for tumor. Tumor size 0.6 x 0.5 cm. TNM stage pT1b N0 (sn ) (-i). ER positive, SC and HER2 Diana negative. Oncotype DX assay surprisingly showed recurrent score of 29 with a risk of distant recurrence of 18% at 9 years. Chemotherapy benefit was greater than 15%. Patient was recommended chemotherapy because of high risk of recurrence. She initially agreed and she was scheduled for chemotherapy with Taxotere and Cytoxan. However she fell sick with upper respiratory symptoms and although she was negative for COVID-19 she decided to forego chemotherapy and receive radiation therapy. She will complete adjuvant radiation therapy at [facility] on 06/29/2020. I discussed adjuvant hormonal therapy with letrozole 2.5 mg once daily for 5 years. Possible side effects of bone loss, arthralgias and vasomotor symptoms were discussed. She is willing to proceed, she will start on 07/04/2020. 2. Bone density performed 06/04 revealed bone loss with a T-score of-2.4. Have asked her to start calcium with vitamin-D supplementation. I will have her start Prolia 60 mg subcu q.6 months to prevent AI associated bone loss. She is agreeable to all above recommendations. Follow-up in 2 months. - Time Spent With Patient Total time spent is greater than 50% in coordination of care (as documented) at patient's floor/unit and/or counseling patient: 15 - 24 minutes
[2020-06-23 15:46] VITALS: BP 150/64; PULSE 84; RESP 12; TEMP 36.5; O2SAT 95; BMI 25.4
[2020-06-23 15:51] LABS: MANUAL DIFF FLAG NO
[2020-06-23 15:52] LABS: Basophils Absolute Auto 0.1 X10*3/uL (0.0-0.2); Basophils Percent Auto 0.7 % (0-2); Eosinophils Absolute Auto 0.1 X10*3/uL (0.0-0.4); Eosinophils Percent Auto 1.3 % (0-4); Hematocrit 43.3 % (37-47); Hemoglobin 14.8 g/dl (12.0-16.0); Imm Gran Abs Auto 0.03 X10*3/uL (0.00-0.03); Imm Gran Pct Auto 0.4 % (0.0-0.4); Lymphocytes Absolute Auto 1.4 X10*3/uL (1.2-4.9); Lymphocytes Percent Auto 19.1 % (20-40); Mean Corpuscular HGB Conc 34.2 g/dl (31.0-35.0); Mean Corpuscular Hemoglobin 30.6 pg (27.0-33.0); Mean Corpuscular Volume 89.6 fL (80-98); Mean Platelet Volume 9.9 fL (9.4-12.3); Monocytes Absolute Auto 0.6 X10*3/uL (0.1-1.2); Monocytes Percent Auto 7.9 % (2-11); Neutrophils Absolute Auto 5.3 X10*3/uL (2.0-8.3); Neutrophils Percent Auto 70.6 % (45-73); Platelet Count 254 X10*3/uL (160-400); Red Blood Count 4.83 X10*6/uL (4.20-5.50); Red Cell Distribution Width 12.6 % (11.0-16.0); White Blood Count 7.5 X10*3/uL (4.8-10.8)
[2020-06-23 16:23] LABS: Alanine Aminotransferase 15 U/L (0-31); Albumin Level 4.5 g/dL (3.5-5.0); Alkaline Phosphatase 63 U/L (39-117); Anion Gap 10 (12-20); Aspartate Amino Transferase 14 U/L (5-31); Bilirubin Total 0.6 mg/dL (0.0-1.0); Blood Urea Nitrogen 16 mg/dL (9-16); Calcium 9.5 mg/dL (8.4-10.2); Carbon Dioxide 33 mmol/L (22-29); Chloride 102 mmol/L (96-108); Creatinine Clr Calc Pharmacy 72.1; Estimated Glomerular Filt Rate > 60; Glucose Random 90 mg/dL (60-115); Potassium 4.2 mmol/l (3.3-5.1); Sodium 141 mmol/L (135-145); Total Protein 7.5 g/dL (6.5-8.0)
[2020-06-24 13:12] LABS: CA 27.29 17 U/mL (<38)
--- NOTE | 2020-07-05 14:17 | MHC.HEMONCMA ---
Quynh from [facility] emailed me asking what is going on with the patient's Prolia rx. I looked into the notes and saw that Rosalind was working on it, but was not able to finish it due to having to be off for 2 weeks. I emailed Quynh that i will get an rx and fax it to [facility] pharmacy. Dr Mckeon wrote the prescription, I faxed it to [facility] and emailed Quynh back letting her know.
--- NOTE | 2020-07-13 10:13 | MHC.HEMONCMA ---
Patient's Prolia is covered under buy and bill due to the high copay through [facility]. Ting spoke with our pharmacy to make sure she can get the medication through buy and bill, and Ting scheduled the patient for 07/20/2020 at 2pm. I called and spoke with the patient, gave her the time and date of appt. She agrees and wrote it down.
[2020-07-20 14:14] VITALS: BP 140/65; PULSE 85; RESP 18; TEMP 36.7; O2SAT 96; BMI 25.4
[2020-07-20 15:30] LABS: Alanine Aminotransferase 21 U/L (0-31); Albumin Level 4.1 g/dL (3.5-5.0); Alkaline Phosphatase 60 U/L (39-117); Anion Gap 13 (12-20); Aspartate Amino Transferase 17 U/L (5-31); Bilirubin Total 0.4 mg/dL (0.0-1.0); Blood Urea Nitrogen 19 mg/dL (9-16); Calcium 8.7 mg/dL (8.4-10.2); Carbon Dioxide 27 mmol/L (22-29); Chloride 104 mmol/L (96-108); Creatinine Clr Calc Pharmacy 74.1; Estimated Glomerular Filt Rate > 60; Glucose Random 135 mg/dL (60-115); Potassium 4.1 mmol/l (3.3-5.1); Sodium 140 mmol/L (135-145)
[2020-07-20] MEDS: Denosumab 60 MG/ML SYRINGE SUBCUT (15:45)
--- NOTE | 2020-07-20 15:49 | MHC.HEMONC ---
Patient seen today for injection. Labs drawn as ordered. Injection given as ordered/documented. Follow-up given.
[2020-08-25 13:44] VITALS: BP 143/63; PULSE 83; RESP 12; TEMP 37; O2SAT 96; BMI 24.8
--- NOTE | 2020-08-25 13:52 | P.PNHO_ITS ---
Medical Summary - Medical Summary Date of Service: 08/25/20 Chief complaint: Follow-up Medical Summary: Diagnosis: Right breast invasive ductal carcinoma March 2020 routine screening mammography in February 2020 revealed right breast density, targeted ultrasound and mammography revealed 5 mm hypoechoic nodule 11 o'clock position, 9 cm from nipple. Margins ill-defined. This was read as suspicious, biopsy was recommended. On 03/10/2020 right breast core biopsy of 11:00 o'clock nodule revealed invasive ductal carcinoma, MS BR grade 2, DCIS, nuclear grade 2. estrogen receptor positive 80%, progesterone receptor negative, HER2 Diana negative. On 03/25/2020 underwent right breast lumpectomy with sentinel node biopsy. Pathology -invasive ductal carcinoma, grade 2, DCIS intermediate nuclear grade, solid type. No LVI, margins negative. Four sentinel lymph nodes negative for tumor. Tumor size 0.6 x 0.5 cm. TNM stage pT1b N0 (sn ) (-i) Oncotype recurrence score high at 29. Patient declined adjuvant chemotherapy. She completed adjuvant radiation therapy. Interval History Interval history: Patient is here in follow-up. She is doing well in terms of her hormonal therapy but she has been diagnosed with thrush and has been taking fluconazole. She reports change in her voice, weakness/dysphonia. She is being followed by ENT surgeon. She denies any significant arthralgias, breast tenderness, fever or chills. Review of Systems - Constitutional Reports no additional constitutional complaints - Cardiovascular Reports no additional cardiovascular complaints - Respiratory Reports no additional respiratory complaints - Gastrointestinal Reports no additional gastrointestinal complaints [facility] Medical History: Medical History (Last Reviewed 04/30/20 @ 09:36 by Oleg Perez MD) Breast cancer Hypertension Family History: Family History (Last Reviewed 08/24/20 @ 10:15 by LAN Arnold) Father Prostate cancer Mother Cervical ca Breast CA Maternal Aunt Breast CA Other HTN (hypertension) Surgical History: Surgical History (Last Reviewed 08/24/20 @ 10:15 by ALN Arnold) H/O breast biopsy Onset Date: 03/03/20 History of lumpectomy of right breast Onset Date: 03/25/20 Hx laparoscopic cholecystectomy Hx of tonsillectomy Social History: Social History (Last Updated 08/25/20 @ 13:46 by Suzanne Jackson) Alcohol History: Alcohol intake: never Alcohol History Details: Alcohol intake frequency: does not drink Tobacco History: Smoking Status: Never smoker Substance Use History: Use of substances other than those prescribed or required for medical reasons : No Advance Directives: Advance Directives: Yes Advance Directives Information Provided: No Advance Directives on File: No Smoking status: Never smoker Home Medications and Allergies Home Medications Medication Instructions Recorded Confirmed Type amlodipine 5 mg PO DAILY 04/15/20 08/24/20 History olmesartan 40 mg PO DAILY 04/15/20 08/24/20 History fluconazole 100 mg tablet 100 mg PO DAILY 08/24/20 08/25/20 History Allergies Allergy/AdvReac Type Severity Reaction Status Date / Time Sulfa (Sulfonamide Allergy Unknown FEVER/RASH Unverified 04/01/20 15:16 Antibiotics) [SULFA (SULFONAMIDE ANTIBIOTICS)] lisinopril AdvReac Cough Verified 04/15/20 10:31 Sulfacet-R Allergy Unknown Cough Uncoded 04/15/20 10:31 Exam Vital signs: Vital Signs Temp 98.6 F 08/25/20 13:44 Pulse 83 08/25/20 13:44 Resp 12 08/25/20 13:44 BP 143/63 H 08/25/20 13:44 Pulse Ox 96 08/25/20 13:44 Intake & Output 08/24/20 08/25/20 08/25/20 18:59 06:59 18:59 Other: Weight 67.7 kg Bernie Weight in Grams [id number] Weight 67.7 kg Body Mass Index 24.8 - Constitutional Present: no acute distress - Routine HEENT Exam Head: Present: atraumatic, normal inspection - Routine Chest/Breast/Axilla Exam Chest wall: Absent: tenderness, mass - Routine Respiratory Exam Present: CTAB - Routine Cardiovascular Exam Cardiovascular: Present: RRR, S1, S2 - Routine Abdominal Exam Present: normal bowel sounds, nontender - Routine Extremities Exam Absent: joint swelling, pedal edema - Routine Skin Exam Present: intact, warm - Routine Neurological Exam Present: alert, oriented X3 Data - Labs CBC & Chem 7: 06/23/20 15:43 07/20/20 14:25 Labs: 06/23/20 15:43 CA 27.29 Routine Complete Blood Count Auto Diff Routine Comprehensive Met. Panel Routine Vitamin D 25-OH Total Routine 07/20/20 00:00 Denosumab [Prolia] 60 mg SUBCUT ONCE 07/20/20 14:25 Comprehensive Met. Panel Routine Laboratory Last Values WBC 7.5 X10*3/uL (4.8-10.8) 06/23/20 15:43 RBC 4.83 X10*6/uL (4.20-5.50) 06/23/20 15:43 Hgb 14.8 g/dl (12.0-16.0) 06/23/20 15:43 Hct 43.3 % (37-47) 06/23/20 15:43 MCV 89.6 fL (80-98) 06/23/20 15:43 MCH 30.6 pg (27.0-33.0) 06/23/20 15:43 MCHC 34.2 g/dl (31.0-35.0) 06/23/20 15:43 RDW 12.6 % (11.0-16.0) 06/23/20 15:43 Plt Count 254 X10*3/uL (160-400) 06/23/20 15:43 MPV 9.9 fL (9.4-12.3) 06/23/20 15:43 Immature Gran % (Auto) 0.4 % (0.0-0.4) 06/23/20 15:43 Neut % (Auto) 70.6 % (45-73) 06/23/20 15:43 Lymph % (Auto) 19.1 % (20-40) L 06/23/20 15:43 [place] % (Auto) 7.9 % (2-11) 06/23/20 15:43 Eos % (Auto) 1.3 % (0-4) 06/23/20 15:43 Baso % (Auto) 0.7 % (0-2) 06/23/20 15:43 Lymph # (Auto) 1.4 X10*3/uL (1.2-4.9) 06/23/20 15:43 [place] # (Auto) 0.6 X10*3/uL (0.1-1.2) 06/23/20 15:43 Eos # (Auto) 0.1 X10*3/uL (0.0-0.4) 06/23/20 15:43 Baso # (Auto) 0.1 X10*3/uL (0.0-0.2) 06/23/20 15:43 Abs Immat Gran (auto) 0.03 X10*3/uL (0.00-0.03) 06/23/20 15:43 Absolute Neuts (auto) 5.3 X10*3/uL (2.0-8.3) 06/23/20 15:43 Absolute Nucleated RBC 0.000 X10*3/uL (0.0-0.012) 06/23/20 15:43 Nucleated RBC % (auto) 0.0 /100WBC (0.0-0.2) 06/23/20 15:43 Sodium 140 mmol/L (135-145) 07/20/20 14:25 Potassium 4.1 mmol/l (3.3-5.1) 07/20/20 14:25 Chloride 104 mmol/L (96-108) 07/20/20 14:25 Carbon Dioxide 27 mmol/L (22-29) 07/20/20 14:25 Anion Gap 13 (12-20) 07/20/20 14:25 BUN 19 mg/dL (9-16) H 07/20/20 14:25 Creatinine 0.69 mg/dL (0.5-1.4) 07/20/20 14:25 Estim Creat Clear Calc 74.1 07/20/20 14:25 Estimated GFR > 60 07/20/20 14:25 Random Glucose 135 mg/dL (60-115) H D 07/20/20 14:25 Calcium 8.7 mg/dL (8.4-10.2) D 07/20/20 14:25 Total Bilirubin 0.4 mg/dL (0.0-1.0) 07/20/20 14:25 AST 17 U/L (5-31) 07/20/20 14:25 ALT 21 U/L (0-31) 07/20/20 14:25 Alkaline Phosphatase 60 U/L (39-117) 07/20/20 14:25 Total Protein 7.0 g/dL (6.5-8.0) 07/20/20 14:25 Albumin 4.1 g/dL (3.5-5.0) 07/20/20 14:25 CA 27-29 17 U/mL (<38) 06/23/20 15:43 25-OH Vitamin D Total 8.0 ng/mL (>30) 06/23/20 15:43 Progress Note: A/P (1) Infiltrating ductal carcinoma of right breast Status: Chronic Assessment and plan: 1. This is a 70-year-old postmenopausal woman with right breast invasive ductal carcinoma diagnosed in February 2020. She underwent right breast lumpectomy with sentinel node biopsy on 03/25/2020. Pathology -invasive ductal carcinoma, grade 2, DCIS intermediate nuclear grade, solid type. No LVI, margins negative. Four sentinel lymph nodes negative for tumor. Tumor size 0.6 x 0.5 cm. TNM stage pT1b N0 (sn ) (-i). ER positive, CT and HER2 Diana negative. Oncotype Dx score 29, declined chemotherapy. She completed adjuvant radiation therapy at [facility] on 06/29/2020. She started hormonal therapy with letrozole 2.5 mg daily from 07/04/2020. She is tolerating it well, mild vasomotor symptoms. 2. Bone density performed 06/04 revealed bone loss with a T-score of-2.4. Have asked her to start calcium with vitamin-D supplementation. Received 1st dose of Prolia 60 mg subQ on 07/21/2020. This will be administered every 6 months. She is scheduled for bilateral mammogram in September 2020. Follow-up in 3 months. - Time Spent With Patient Total time spent is greater than 50% in coordination of care (as documented) at patient's floor/unit and/or counseling patient: 25 - 35 minutes
[2020-11-23 08:49] VITALS: BP 148/67; PULSE 84; RESP 12; TEMP 37; O2SAT 96; BMI 23.3
--- NOTE | 2020-11-23 09:12 | PM.HEMONCPN ---
Medical Summary - Medical Summary Date of Service: 11/23/20 Chief complaint: Weakness Medical Summary: Diagnosis: Right breast invasive ductal carcinoma March 2020 routine screening mammography in February 2020 revealed right breast density, targeted ultrasound and mammography revealed 5 mm hypoechoic nodule 11 o'clock position, 9 cm from nipple. Margins ill-defined. This was read as suspicious, biopsy was recommended. On 03/10/2020 right breast core biopsy of 11:00 o'clock nodule revealed invasive ductal carcinoma, MS BR grade 2, DCIS, nuclear grade 2. estrogen receptor positive 80%, progesterone receptor negative, HER2 Diana negative. On 03/25/2020 underwent right breast lumpectomy with sentinel node biopsy. Pathology -invasive ductal carcinoma, grade 2, DCIS intermediate nuclear grade, solid type. No LVI, margins negative. Four sentinel lymph nodes negative for tumor. Tumor size 0.6 x 0.5 cm. TNM stage pT1b N0 (sn ) (-i) Oncotype recurrence score high at 29. Patient declined adjuvant chemotherapy. She completed adjuvant radiation therapy at [facility]. 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 Interval History Interval history: Patient is here in follow-up. Unfortunately, she has had a major neurological diagnosis, bulbar palsy/Rebecca Gehrig's disease diagnosed in the past few weeks. Because of dysphonia and progressive voice changes she underwent neurological evaluation in the last few months. She has just been started on a new medication, riluzole for this. She wants to know if there is any interaction with letrozole. She had her mammography in September 2020. She has no complaints pertaining to her breasts. She denies any right arm pain or swelling. No breast mass, nipple discharge or tenderness. Her voice has become very weak. She also reports shortness of breath with exertion. She has mild difficulty with swallowing but is able to eat regular food. She denies any significant difficulty walking. Review of Systems - Constitutional Reports as per HPI - Cardiovascular Reports no additional cardiovascular complaints - Respiratory Reports no additional respiratory complaints, Denies cough PMFSH Medical History: Medical History (Last Reviewed 04/30/20 @ 09:36 by Oleg Perez MD) Breast cancer Hypertension Family History: Family History (Last Reviewed 08/24/20 @ 10:15 by LAN Arnold) Father Prostate cancer Mother Cervical ca Breast CA Maternal Aunt Breast CA Other HTN (hypertension) Surgical History: Surgical History (Last Reviewed 08/24/20 @ 10:15 by LAN Arnold) H/O breast biopsy Onset Date: 03/03/20 History of lumpectomy of right breast Onset Date: 03/25/20 Hx laparoscopic cholecystectomy Hx of tonsillectomy Social History: Social History (Last Updated 08/25/20 @ 13:46 by Suzanne Jackson) Alcohol History: Alcohol intake: never Alcohol History Details: Alcohol intake frequency: does not drink Tobacco History: Smoking Status: Never smoker Substance Use History: Use of substances other than those prescribed or required for medical reasons: No Advance Directives: Advance Directives: Yes Advance Directives Information Provided: No Advance Directives on File: No Smoking status: Never smoker Oncology Screenings - ECOG Performance Status ECOG Performance Status: 2 Home Medications and Allergies Home Medications Medication Instructions Recorded Confirmed Type amlodipine 5 mg PO DAILY 04/15/20 08/24/20 History olmesartan 40 mg PO DAILY 04/15/20 08/24/20 History fluconazole 100 mg tablet 100 mg PO DAILY 08/24/20 08/25/20 History riluzole 50 mg PO Q12H 11/23/20 11/23/20 History Allergies Allergy/AdvReac Type Severity Reaction Status Date / Time Sulfa (Sulfonamide Allergy Unknown FEVER/RASH Unverified 04/01/20 15:16 Antibiotics) [SULFA (SULFONAMIDE ANTIBIOTICS)] lisinopril AdvReac Cough Verified 04/15/20 10:31 Sulfacet-R Allergy Unknown Cough Uncoded 04/15/20 10:31 Exam Vital signs: Vital Signs Temp 98.6 F 11/23/20 08:49 Pulse 84 11/23/20 08:49 Resp 12 11/23/20 08:49 BP 148/67 H 11/23/20 08:49 Pulse Ox 96 11/23/20 08:49 Intake & Output 11/22/20 11/23/20 11/23/20 18:59 06:59 18:59 Other: Weight 63.6 kg Weight in Grams [id number] Weight 63.6 kg Body Mass Index 23.3 - Constitutional Present: no acute distress - Routine HEENT Exam Head: Present: atraumatic, normal inspection - Routine Chest/Breast/Axilla Exam Chest wall: Absent: tenderness, mass - Routine Respiratory Exam Present: CTAB - Routine Cardiovascular Exam Cardiovascular: Present: RRR, S1, S2 - Routine Abdominal Exam Present: normal bowel sounds, nontender - Routine Extremities Exam Absent: joint swelling, pedal edema - Routine Skin Exam Present: intact, warm - Routine Neurological Exam Present: alert, oriented X3 Data - Labs CBC & Chem 7: 06/23/20 15:43 07/20/20 14:25 Labs: 06/23/20 15:43 CA 27.29 Routine Complete Blood Count Auto Diff Routine Comprehensive Met. Panel Routine Vitamin D 25-OH Total Routine 07/20/20 00:00 Denosumab [Prolia] 60 mg SUBCUT ONCE 07/20/20 14:25 Comprehensive Met. Panel Routine Laboratory Last Values WBC 7.5 X10*3/uL (4.8-10.8) 06/23/20 15:43 RBC 4.83 X10*6/uL (4.20-5.50) 06/23/20 15:43 Hgb 14.8 g/dl (12.0-16.0) 06/23/20 15:43 Hct 43.3 % (37-47) 06/23/20 15:43 MCV 89.6 fL (80-98) 06/23/20 15:43 MCH 30.6 pg (27.0-33.0) 06/23/20 15:43 MCHC 34.2 g/dl (31.0-35.0) 06/23/20 15:43 RDW 12.6 % (11.0-16.0) 06/23/20 15:43 Plt Count 254 X10*3/uL (160-400) 06/23/20 15:43 MPV 9.9 fL (9.4-12.3) 06/23/20 15:43 Immature Gran % (Auto) 0.4 % (0.0-0.4) 06/23/20 15:43 Neut % (Auto) 70.6 % (45-73) 06/23/20 15:43 Lymph % (Auto) 19.1 % (20-40) L 06/23/20 15:43 Oliver % (Auto) 7.9 % (2-11) 06/23/20 15:43 Eos % (Auto) 1.3 % (0-4) 06/23/20 15:43 Baso % (Auto) 0.7 % (0-2) 06/23/20 15:43 Lymph # (Auto) 1.4 X10*3/uL (1.2-4.9) 06/23/20 15:43 Oliver # (Auto) 0.6 X10*3/uL (0.1-1.2) 06/23/20 15:43 Eos # (Auto) 0.1 X10*3/uL (0.0-0.4) 06/23/20 15:43 Baso # (Auto) 0.1 X10*3/uL (0.0-0.2) 06/23/20 15:43 Abs Immat Gran (auto) 0.03 X10*3/uL (0.00-0.03) 06/23/20 15:43 Absolute Neuts (auto) 5.3 X10*3/uL (2.0-8.3) 06/23/20 15:43 Absolute Nucleated RBC 0.000 X10*3/uL (0.0-0.012) 06/23/20 15:43 Nucleated RBC % (auto) 0.0 /100WBC (0.0-0.2) 06/23/20 15:43 Sodium 140 mmol/L (135-145) 07/20/20 14:25 Potassium 4.1 mmol/l (3.3-5.1) 07/20/20 14:25 Chloride 104 mmol/L (96-108) 07/20/20 14:25 Carbon Dioxide 27 mmol/L (22-29) 07/20/20 14:25 Anion Gap 13 (12-20) 07/20/20 14:25 BUN 19 mg/dL (9-16) H 07/20/20 14:25 Creatinine 0.69 mg/dL (0.5-1.4) 07/20/20 14:25 Estim Creat Clear Calc 74.1 07/20/20 14:25 Estimated GFR > 60 07/20/20 14:25 Random Glucose 135 mg/dL (60-115) H D 07/20/20 14:25 Calcium 8.7 mg/dL (8.4-10.2) D 07/20/20 14:25 Total Bilirubin 0.4 mg/dL (0.0-1.0) 07/20/20 14:25 AST 17 U/L (5-31) 07/20/20 14:25 ALT 21 U/L (0-31) 07/20/20 14:25 Alkaline Phosphatase 60 U/L (39-117) 07/20/20 14:25 Total Protein 7.0 g/dL (6.5-8.0) 07/20/20 14:25 Albumin 4.1 g/dL (3.5-5.0) 07/20/20 14:25 CA 27-29 17 U/mL (<38) 06/23/20 15:43 25-OH Vitamin D Total 8.0 ng/mL (>30) 06/23/20 15:43 Progress Note: A/P (1) Infiltrating ductal carcinoma of right breast Status: Chronic Assessment and plan: 1. This is a 70-year-old postmenopausal woman with right breast invasive ductal carcinoma diagnosed in February 2020. She underwent right breast lumpectomy with sentinel node biopsy on 03/25/2020. Pathology -invasive ductal carcinoma, grade 2, DCIS intermediate nuclear grade, solid type. No LVI, margins negative. Four sentinel lymph nodes negative for tumor. Tumor size 0.6 x 0.5 cm. TNM stage pT1b N0 (sn ) (-i). ER positive, NC and HER2 Diana negative. Oncotype Dx score 29, declined chemotherapy. She completed adjuvant radiation therapy at [facility] on 06/29/2020. She started hormonal therapy with letrozole 2.5 mg daily from 07/04/2020. She is tolerating it well, mild vasomotor symptoms. She just started taking a new medication for Rebecca Gehrig's disease. She is on Riluzole, no drug interaction found with letrozole. But this can sometimes cause neutropenia and liver function abnormalities. She will be monitored with blood work. 2. Bone density performed 06/04 revealed bone loss with a T-score of-2.4. Have asked her to start calcium with vitamin-D supplementation. Received 1st dose of Prolia 60 mg subQ on 07/21/2020. This will be administered every 6 months. She will be due for next bilateral mammogram in September 2021. Follow-up in 3 months. - Time Spent With Patient Total time spent is greater than 50% in coordination of care (as documented) at patient's floor/unit and/or counseling patient: 25 - 35 minutes
--- NOTE | 2020-11-23 10:51 | MHC.HEMONCMA ---
Patient came in for a follow up today, states that she got some really upsetting results. States that she found out that she has a form of ALS, Bulbar Palsy. She is quite upset and has many questions for the doctor. Clinical summary was reviewed and updated, a new medication to help lessen the symptoms of her disease was added to her med list. Patient had blood work and will return to the office in 3 months.
[2021-02-28 15:15] VITALS: BP 138/83; PULSE 74; RESP 14; TEMP 36.7; O2SAT 94; BMI 22.5
--- NOTE | 2021-02-28 15:19 | PM.HEMONCPN ---
Medical Summary - Medical Summary Date of Service: 02/28/21 Chief complaint: Loss of voice Medical Summary: Diagnosis: Right breast invasive ductal carcinoma March 2020 routine screening mammography in February 2020 revealed right breast density, targeted ultrasound and mammography revealed 5 mm hypoechoic nodule 11 o'clock position, 9 cm from nipple. Margins ill-defined. This was read as suspicious, biopsy was recommended. On 03/10/2020 right breast core biopsy of 11:00 o'clock nodule revealed invasive ductal carcinoma, MS BR grade 2, DCIS, nuclear grade 2. estrogen receptor positive 80%, progesterone receptor negative, HER2 Diana negative. On 03/25/2020 underwent right breast lumpectomy with sentinel node biopsy. Pathology -invasive ductal carcinoma, grade 2, DCIS intermediate nuclear grade, solid type. No LVI, margins negative. Four sentinel lymph nodes negative for tumor. Tumor size 0.6 x 0.5 cm. TNM stage pT1b N0 (sn ) (-i) Oncotype recurrence score high at 29. Patient declined adjuvant chemotherapy. She completed adjuvant radiation therapy at [facility]. 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 Interval History Interval history: Patient is here in follow-up. Unfortunately her ALS he is progressing rather rapidly. She is no longer able to talk, she communicates by texting on her cellphone. She has pain in her left knee and now uses a cane to walk. She is scheduled to visit a specialist in [facility]. She is taking letrozole and thinks that it is causing her hair loss. She is going to go for mammography next week. She is disheartened since she was told that life expectancy with her kind of ALS is about 2 years. Review of Systems - Constitutional Reports as per [facility] Medical History: Medical History (Last Reviewed 02/28/21 @ 15:16 by Suzanne Jackson) Breast cancer Hypertension Rebecca Gehrigs disease Family History: Family History (Last Reviewed 02/28/21 @ 15:16 by Suzanne Jackson) Father Prostate cancer Mother Cervical ca Breast CA Maternal Aunt Breast CA Other HTN (hypertension) Surgical History: Surgical History (Last Reviewed 02/28/21 @ 15:16 by Suzanne Jackson) H/O breast biopsy Onset Date: 03/03/20 History of lumpectomy of right breast Onset Date: 03/25/20 Hx laparoscopic cholecystectomy Hx of tonsillectomy Social History: Social History (Last Updated 02/28/21 @ 15:17 by Suzanne Jackson) Alcohol History: Alcohol intake: never Alcohol History Details: Alcohol intake frequency: does not drink Tobacco History: Patient Tobacco Use Status: Never used Tobacco Substance Use History: Use of substances other than those prescribed or required for medical reasons: No Advance Directives: Advance Directives: Yes Advance Directives Information Provided: No Advance Directives on File: No Occupation Assessmet: Current occupational status: retired Current occupation: Right handed. Home Medications and Allergies Home Medications Medication Instructions Recorded Confirmed Type olmesartan 40 mg tablet 20 mg PO DAILY 04/15/20 02/28/21 History riluzole 50 mg tablet 50 mg PO Q12H 11/23/20 02/28/21 History Allergies Allergy/AdvReac Type Severity Reaction Status Date / Time Sulfa (Sulfonamide Allergy Unknown FEVER/RASH Verified 12/20/20 09:49 Antibiotics) [SULFA (SULFONAMIDE ANTIBIOTICS)] lisinopril AdvReac Cough Verified 12/20/20 09:49 Exam Vital signs: Vital Signs Temp 98.0 F 02/28/21 15:15 Pulse 74 02/28/21 15:15 Resp 14 02/28/21 15:15 BP 138/83 02/28/21 15:15 Pulse Ox 94 02/28/21 15:15 Intake & Output 02/27/21 02/28/21 02/28/21 18:59 06:59 18:59 Other: Weight 61.5 kg Vera Weight in Grams 84285 Weight 61.5 kg Body Mass Index 22.5 - Constitutional Present: no acute distress - Routine HEENT Exam Head: Present: atraumatic, normal inspection - Routine Chest/Breast/Axilla Exam Chest wall: Absent: tenderness, mass - Routine Respiratory Exam Present: CTAB - Routine Cardiovascular Exam Cardiovascular: Present: RRR, S1, S2 - Routine Abdominal Exam Present: normal bowel sounds, nontender - Routine Extremities Exam Absent: joint swelling, pedal edema - Routine Skin Exam Present: intact, warm - Routine Neurological Exam Present: alert, oriented X3 Data - Labs CBC & Chem 7: 02/28/21 15:35 07/20/20 14:25 Labs: 06/23/20 15:43 CA 27.29 Routine Complete Blood Count Auto Diff Routine Comprehensive Met. Panel Routine Vitamin D 25-OH Total Routine 07/20/20 00:00 Denosumab [Prolia] 60 mg SUBCUT ONCE 07/20/20 14:25 Comprehensive Met. Panel Routine Laboratory Last Values WBC 7.5 X10*3/uL (4.8-10.8) 06/23/20 15:43 RBC 4.83 X10*6/uL (4.20-5.50) 06/23/20 15:43 Hgb 14.8 g/dl (12.0-16.0) 06/23/20 15:43 Hct 43.3 % (37-47) 06/23/20 15:43 MCV 89.6 fL (80-98) 06/23/20 15:43 MCH 30.6 pg (27.0-33.0) 06/23/20 15:43 MCHC 34.2 g/dl (31.0-35.0) 06/23/20 15:43 RDW 12.6 % (11.0-16.0) 06/23/20 15:43 Plt Count 254 X10*3/uL (160-400) 06/23/20 15:43 MPV 9.9 fL (9.4-12.3) 06/23/20 15:43 Immature Gran % (Auto) 0.4 % (0.0-0.4) 06/23/20 15:43 Neut % (Auto) 70.6 % (45-73) 06/23/20 15:43 Lymph % (Auto) 19.1 % (20-40) L 06/23/20 15:43 Kemper % (Auto) 7.9 % (2-11) 06/23/20 15:43 Eos % (Auto) 1.3 % (0-4) 06/23/20 15:43 Baso % (Auto) 0.7 % (0-2) 06/23/20 15:43 Lymph # (Auto) 1.4 X10*3/uL (1.2-4.9) 06/23/20 15:43 Kemper # (Auto) 0.6 X10*3/uL (0.1-1.2) 06/23/20 15:43 Eos # (Auto) 0.1 X10*3/uL (0.0-0.4) 06/23/20 15:43 Baso # (Auto) 0.1 X10*3/uL (0.0-0.2) 06/23/20 15:43 Abs Immat Gran (auto) 0.03 X10*3/uL (0.00-0.03) 06/23/20 15:43 Absolute Neuts (auto) 5.3 X10*3/uL (2.0-8.3) 06/23/20 15:43 Absolute Nucleated RBC 0.000 X10*3/uL (0.0-0.012) 06/23/20 15:43 Nucleated RBC % (auto) 0.0 /100WBC (0.0-0.2) 06/23/20 15:43 Sodium 140 mmol/L (135-145) 07/20/20 14:25 Potassium 4.1 mmol/l (3.3-5.1) 07/20/20 14:25 Chloride 104 mmol/L (96-108) 07/20/20 14:25 Carbon Dioxide 27 mmol/L (22-29) 07/20/20 14:25 Anion Gap 13 (12-20) 07/20/20 14:25 BUN 19 mg/dL (9-16) H 07/20/20 14:25 Creatinine 0.69 mg/dL (0.5-1.4) 07/20/20 14:25 Estim Creat Clear Calc 74.1 07/20/20 14:25 Estimated GFR > 60 07/20/20 14:25 Random Glucose 135 mg/dL (60-115) H D 07/20/20 14:25 Calcium 8.7 mg/dL (8.4-10.2) D 07/20/20 14:25 Total Bilirubin 0.4 mg/dL (0.0-1.0) 07/20/20 14:25 AST 17 U/L (5-31) 07/20/20 14:25 ALT 21 U/L (0-31) 07/20/20 14:25 Alkaline Phosphatase 60 U/L (39-117) 07/20/20 14:25 Total Protein 7.0 g/dL (6.5-8.0) 07/20/20 14:25 Albumin 4.1 g/dL (3.5-5.0) 07/20/20 14:25 CA 27-29 17 U/mL (<38) 06/23/20 15:43 25-OH Vitamin D Total 8.0 ng/mL (>30) 06/23/20 15:43 Progress Note: A/P (1) Infiltrating ductal carcinoma of right breast Status: Chronic Assessment and plan: 1. This is a 70-year-old postmenopausal woman with right breast invasive ductal carcinoma diagnosed in February 2020. She underwent right breast lumpectomy with sentinel node biopsy on 03/25/2020. Pathology -invasive ductal carcinoma, grade 2, DCIS intermediate nuclear grade, solid type. No LVI, margins negative. Four sentinel lymph nodes negative for tumor. Tumor size 0.6 x 0.5 cm. TNM stage pT1b N0 (sn ) (-i). ER positive, LA and HER2 Diana negative. Oncotype Dx score 29, declined chemotherapy. She completed adjuvant radiation therapy at [facility] on 06/29/2020. She started hormonal therapy with letrozole 2.5 mg daily from 07/04/2020. She is tolerating it well, mild vasomotor symptoms. She just started taking a new medication for Rebecca Gehrig's disease. She is on Riluzole, no drug interaction found with letrozole. But this can sometimes cause neutropenia and liver function abnormalities. She will be monitored with blood work. 2. Bone density performed 06/04 revealed bone loss with a T-score of-2.4. Have asked her to start calcium with vitamin-D supplementation. Received 1st dose of Prolia 60 mg subQ on 07/21/2020. This will be administered every 6 months. Unfortunately, she appears to be declining because of her recently diagnosed ALS. Follow-up in 3 months. - Time Spent With Patient Time Spent with Patient (in minutes): 20
[2021-02-28 15:36] LABS: MANUAL DIFF FLAG NO
[2021-02-28 16:22] LABS: Basophils Percent Auto 0.4 % (0-2); Eosinophils Absolute Auto 0.1 X10*3/uL (0.0-0.4); Eosinophils Percent Auto 1.3 % (0-4); Hematocrit 42.1 % (37-47); Hemoglobin 13.8 g/dl (12.0-16.0); Imm Gran Abs Auto 0.02 X10*3/uL (0.00-0.03); Imm Gran Pct Auto 0.3 % (0.0-0.4); Lymphocytes Absolute Auto 1.6 X10*3/uL (1.2-4.9); Lymphocytes Percent Auto 21.7 % (20-40); Mean Corpuscular HGB Conc 32.8 g/dl (31.0-35.0); Mean Corpuscular Hemoglobin 29.6 pg (27.0-33.0); Mean Corpuscular Volume 90.3 fL (80-98); Mean Platelet Volume 10.4 fL (9.4-12.3); Monocytes Absolute Auto 0.5 X10*3/uL (0.1-1.2); Monocytes Percent Auto 6.5 % (2-11); Neutrophils Percent Auto 69.8 % (45-73); Platelet Count 234 X10*3/uL (160-400); Red Blood Count 4.66 X10*6/uL (4.20-5.50); Red Cell Distribution Width 12.4 % (11.0-16.0); White Blood Count 7.2 X10*3/uL (4.8-10.8)
[2021-02-28 16:52] LABS: Alanine Aminotransferase 22 U/L (0-31); Albumin Level 4.3 g/dL (3.5-5.0); Alkaline Phosphatase 55 U/L (39-117); Anion Gap 16 (12-20); Aspartate Amino Transferase 18 U/L (5-31); Bilirubin Total 0.5 mg/dL (0.0-1.0); Blood Urea Nitrogen 19 mg/dL (9-16); Calcium 9.8 mg/dL (8.4-10.2); Carbon Dioxide 26 mmol/L (22-29); Chloride 105 mmol/L (96-108); Creatinine Clr Calc Pharmacy 75.9; Estimated Glomerular Filt Rate > 60; Glucose Random 103 mg/dL (60-115); Potassium 4.4 mmol/L (3.3-5.1); Sodium 143 mmol/L (135-145); Total Protein 7.4 g/dL (6.5-8.0)
== END | disposition home or self-care (01) ==
LOC: HO.ONC 04-15 10:01
PROVIDERS: PCP Internal Medicine; Visit Provider Internal Medicine
DX: C50.411 Malignant neoplasm of upper-outer quadrant of right female breast (principal); Z79.811 Long term (current) use of aromatase inhibitors; Z17.0 Estrogen receptor positive status [ER+]; M85.80 Other specified disorders of bone density and structure, unspecified site; G12.21 Amyotrophic lateral sclerosis; Z92.3 Personal history of irradiation
CPT/HCPCS: 36415; 80053; 82306; 85025; 86300; 96372; 99211; 99213; 99214; J0897